=== PATIENT | male | born 1945 | race Caucasian/White ===

== ENCOUNTER → 2016-12-31 | Day surgery (SDC) | payer OTHER, MEDICARE ==
[~2016-12-31] MED LIST: ACETAMINOPHEN 500 MG TAB PO PRN; BUPIVACAINE 0.5% 30 ML SDV ONE; DEXAMETHASONE 4 MG/ML VIAL ONE; ENALAPRILAT DIHYDRATE 1.25 MG/ML VIAL IVP PRN; HYDROCODONE/APAP 5/325 TAB PO PRN; LABETALOL HCL 50 MG/10 ML SYR IVP PRN; LIDOCAINE 2% 5 ML SDV ONE; LR 1,000 ML IV ONE; LR 500 ML IV PRN; MEPERIDINE 25 MG/ML SYR IVP PRN; MIDAZOLAM 2 MG/2 ML VIAL IVP ONE; NALOXONE HCL 0.4 MG/ML INJ IVP PRN; ONDANSETRON 4 MG/2 ML VIAL IVP PRN; ONDANSETRON 4 MG/2 ML VIAL ONE; PROMETHAZINE HCL 25 MG/ML INJ IVP PRN; PROPOFOL 200 MG/20 ML VIAL ONE; PROPOFOL/EMULSION 500 MG/50 ML BOTTLE IV ONE; REMIFENTANIL HCL 1 MG VIAL ONE; ROCURONIUM 50 MG/5 ML VIAL ONE; SUGAMMADEX SODIUM 200 MG/2 ML VIAL IVP ONE; THROMBIN (BOVINE) 5,000 UNIT VIAL TP ONE; VASOPRESSIN 20 UNIT/ML VIAL ONE; ceFAZolin 2 GM in D5W 100 ML IV ONE; ceFAZolin 2 GM/DEXTROSE 100 ML IV ONE; fentaNYL 100 MCG/2 ML INJ IVP PRN; fentaNYL 100 MCG/2 ML INJ ONE; levOFLOXACIN 500 MG/DEXTROSE 100 ML IV ONE
--- NOTE | 2016-12-31 08:04 | PDHPUP ---
History & Physical Update H&P update statement: This history and physical update is based on an assessment of the patient which was completed after admission or registration (within 24 hours), but prior to the surgery/procedure. H&P update: H&P reviewed & patient examined, no change in patient's condition since H&P completed
[2016-12-31 11:26] VITALS: PULSE 92
--- NOTE | 2016-12-31 11:47 | PDANEPAE ---
ANE Past Medical History - Cardiovascular History Hx Hypertension: Yes Hx Arrhythmias: No Hx Chest Pain: No Hx Coronary Artery / Peripheral Vascular Disease: Yes Hx CHF / Valvular Disease: No Hx Palpitations: No Cardiovascular History Comment: coronary stents after [place] ~2000 - Pulmonary History Hx COPD: No Hx Asthma/Reactive Airway Disease: No Hx Recent Upper Respiratory Infection: No Hx Oxygen in Use at Home: No Hx Sleep Apnea: Yes Sleep Apnea Screening Result - Last Documented: Negative Pulmonary History Comment: quit smoking 1999. RUL chest mass noted on chest CT. productive cough. - Neurologic History Hx Cerebrovascular Accident: No Hx Seizures: No Hx Dementia: No - Endocrine History Hx Diabetes: No - Renal History Hx Renal Disorders: Yes Renal History Comment: ileal conduit - Liver History Hx Hepatic Disorders: No - Neurological & Psychiatric Hx Hx Neurological and Psychiatric Disorders: No - Cancer History Hx Cancer: Yes Cancer History Comment: L kidney, prostate,bladder, non-small cell lung CA - Congenital Disorder History Hx Congenital Disorders: No - GI History Hx Gastrointestinal Disorders: No Gastrointestinal History Comment: occ GERD - Other Health History Other Health History: Hx of gout. full dentures. "sinuses drain". - Chronic Pain History Chronic Pain: No - Surgical History Prior Surgeries: radical cystectomy w/ileal conduit 05-26-16. L nephrectomy. prostatectomy 1999. AAA repair 1999 ANE Review of Systems Review of Systems: - Exercise capacity Exercise capacity: >=4 METS METS (RN): 4 METS ANE Patient History - Allergies Allergies/Adverse Reactions: Penicillins Allergy (Verified 12/30/16 16:32) Rash succinylcholine Allergy (Verified 12/30/16 16:33) Other-Enter Comments - Home Medications Home Medications: Allopurinol 12/30/16 [Last Taken Unknown] Amlodipine Besylate 12/30/16 [Last Taken Unknown] Aspirin EC 81 mg (*) 12/30/16 [Last Taken Unknown] Atorvastatin Calcium 12/30/16 [Last Taken Unknown] Losartan Potassium 12/30/16 [Last Taken Unknown] - NPO status NPO Since - Liquids (Date): 12/31/16 NPO Since - Liquids (Time): 09:30 NPO Since - Solids (Date): 12/30/16 NPO Since - Solids (Time): 20:30 - Smoking Hx Smoking Status: Former smoker ANE Labs/Vital Signs - Vital Signs Blood Pressure: 138/89 Heart Rate: 92 Respiratory Rate: 18 O2 Sat (%): 100 Height: 187.96 cm Weight: 98.883 kg ANE Physical Exam - Airway Neck exam: FROM Mallampati Score: Class 2 () Mouth exam: dentures - Pulmonary Pulmonary: no respiratory distress, no rales or rhonchi, clear to auscultation - Cardiovascular Cardiovascular: regular rate and rhythym, no murmur, rub, or gallop - ASA Status ASA Status: III ANE Anesthesia Plan Anesthesia Plan: general endotracheal anesthesia (TIVA)
--- NOTE | 2016-12-31 14:20 | POSTOPPROG ---
Post Op Note Date of Operation: 12/31/16 Surgeon: Rafael Jackson Tobacco Primer Machine Operator: Katelynn Anesthesiologist: Traci Rodriguez Anesthesia: GET(General Endotracheal) Pre-op Diagnosis: Lung cancer Post-op Diagnosis: Same Indication: Mass identified on CT scan Procedure: Mediastinoscopy with paratracheal lymph node biopsy Findings: Paratracheal lymph node Inf/Abcess present in the surg proc area at time of surgery?: No Depth: Deep Incisional (Fascial) EBL: Minimal Complications: None Specimen(s): Right parasternal lymph node biopsies for frozen and permanent
[2016-12-31 14:37] VITALS: TEMP 97.5
--- NOTE | 2016-12-31 14:39 | POSTANESTH ---
Post Anesthetic Evaluation Cardiovascular Status: Normal, Stable, Similar to Pre-Op Cond Respiratory Status: Normal, Stable, Similar to Pre-op Cond. Level of Consciousness/Mental Status: Can Participate in Eval, Mildly Sleepy, Arousable Pain Control: Adequate, Prn Tx Ordered Nausea/Vomiting Control: Adequate, Prn Tx Ordered Complications Possibly Related to Anesthesia: None Noted
[2016-12-31 15:29] VITALS: O2SAT 94
[2016-12-31 15:37] VITALS: BP 132/70; RESP 16
--- NOTE | 2017-01-01 20:24 | GOP ---
[f rep st] OPERATIVE REPORT DATE OF OPERATION: 12/31/2016 SURGEON: Rafael Jackson MD SENIOR WAREHOUSE CLERK: Traci Rodriguez PA-C ANESTHESIOLOGIST: Dr. Pace. PREOPERATIVE DIAGNOSIS: Right lung cancer. POSTOPERATIVE DIAGNOSIS: Right lung cancer, with mediastinal metastases. PROCEDURE PERFORMED: Mediastinoscopy and biopsy. FINDINGS: Patient was found to have a hard, relatively fixed peritracheal node near the bifurcation, which appeared to be consistent with metastatic lung cancer on frozen section. ESTIMATED BLOOD LOSS: Less than 5 cc. DESCRIPTION OF PROCEDURE: The patient was taken to the operating room where he received satisfactory general endotracheal anesthesia by Dr. Pace. He was placed in supine position, prepped and draped in usual sterile fashion. Neck was extended. Incision was made in the low neck, dissection carried down through the platysma. The strap muscles were in the midline. The thyroid was dissect ed free and retracted upward. Pretracheal space was entered and dissection extended down along the t rachea, down into the mediastinum, all the way down to the hunter and pulmonary artery. On the left side of the mediastinum, no lymph nodes could be identified for biopsy. However, a hard node was see n in the right peritracheal area just above the bifurcation of the bronchi. This was carefully tease d out and dissected free, and multiple biopsies were taken of the mass. It appeared to be possibly f ixed to the pulmonary artery and no attempt was made to completely remove the lymph node. Multiple b iopsies were done. Hemostasis was assured. Some topical thrombin was placed in the surgical site, a nd the mediastinoscope was removed. The strap muscles approximated with 3-0 Vicryl, and the platysma was closed with a running 3-0 Vicryl suture. Wounds were infiltrated with 0.5% Marcaine. Skin was closed with 4-0 Monocryl subcuticular stitch. He tolerated the procedure well, was taken to the [facility] very room in good condition. COMPLICATIONS: There were no complications. FINDINGS: Frozen section was returned as consistent with metastatic lung cancer. /[id number]/MODL
== END | disposition home or self-care (01) ==
LOC: UNDOADMOB 10:39 → FSGY 10:39 → F3E 10:39 → EDSTATUS 12:30 → UNDODISOB 16:12
PROVIDERS: ATTEND Surgery
PROC: 07B70ZX Excision of Thorax Lymphatic, Open Approach, Diagnostic (ICD-10-PCS; principal; 2016-12-31 12:30)
DX: C78.1 Secondary malignant neoplasm of mediastinum (principal); C34.11 Malignant neoplasm of upper lobe, right bronchus or lung; Z87.891 Personal history of nicotine dependence
CPT/HCPCS: J1100; J1956; J2250; J2405; J2704; J3010

== ENCOUNTER → 2017-01-12 | Outpatient (CLI) | payer OTHER, MEDICARE | LOC: BHFA 11:00 | PROVIDERS: ATTEND Internal Medicine Cardiovascular Disease | DX: C34.90 Malignant neoplasm of unspecified part of unspecified bronchus or lung (principal) ==

== ENCOUNTER 2017-01-22 07:38 | Day surgery (SDC) | payer OTHER, MEDICARE ==
--- NOTE | 2017-01-22 07:08 | PDHPUP ---
History & Physical Update H&P update statement: This history and physical update is based on an assessment of the patient which was completed after admission or registration (within 24 hours), but prior to the surgery/procedure. reviewed 01/22/2017
[2017-01-22] MEDS ORDERED: CLINDAMYCIN 900 MG/DEXTROSE 50 ML IV ONE (08:13)
[2017-01-22 08:36] VITALS: PULSE 59
[2017-01-22] MEDS ORDERED: BUPIVACAINE 0.5% 30 ML SDV ONE (09:06)
[2017-01-22] MEDS ORDERED: SODIUM BICARBONATE 10 MEQ/10 ML SYR IVP ONE (09:09)
[2017-01-22] MEDS ORDERED: LR 1,000 ML IV ONE (09:12)
--- NOTE | 2017-01-22 10:45 | PDANEPAE ---
ANE Past Medical History - Cardiovascular History Hx Hypertension: Yes Hx Arrhythmias: No Hx Chest Pain: No Hx Coronary Artery / Peripheral Vascular Disease: Yes Hx CHF / Valvular Disease: No Hx Palpitations: No Cardiovascular History Comment: coronary stents after [place] ~2000 - Pulmonary History Hx COPD: No Hx Asthma/Reactive Airway Disease: No Hx Recent Upper Respiratory Infection: No Hx Oxygen in Use at Home: No Hx Sleep Apnea: No Sleep Apnea Screening Result - Last Documented: Positive Pulmonary History Comment: quit smoking 1999. RUL chest mass noted on chest CT. productive cough. - Neurologic History Hx Cerebrovascular Accident: No Hx Seizures: No Hx Dementia: No - Endocrine History Hx Diabetes: No - Renal History Hx Renal Disorders: Yes Renal History Comment: ileal conduit urostomy, right kidney only - Liver History Hx Hepatic Disorders: No - Neurological & Psychiatric Hx Hx Neurological and Psychiatric Disorders: No - Cancer History Hx Cancer: Yes Cancer History Comment: L kidney, prostate,bladder, non-small cell lung CA. colon ca - Congenital Disorder History Hx Congenital Disorders: No - GI History Hx Gastrointestinal Disorders: Yes Gastrointestinal History Comment: colon ca - Other Health History Other Health History: Hx of gout. full dentures. "sinuses drain". - Chronic Pain History Chronic Pain: No - Surgical History Prior Surgeries: radical cystectomy w/ileal conduit 05-26-16. L nephrectomy. prostatectomy 1999. AAA repair 1999 ANE Review of Systems Review of Systems: ANE Patient History - Allergies Allergies/Adverse Reactions: Penicillins Allergy (Verified 12/30/16 16:32) Rash succinylcholine Allergy (Verified 12/30/16 16:33) Other-Enter Comments - Home Medications Home Medications: Allopurinol 12/30/16 [Last Taken 01/22/17] Amlodipine Besylate 12/30/16 [Last Taken 01/22/17] Aspirin EC 81 mg (*) 12/30/16 [Last Taken 01/21/17] Atorvastatin Calcium 12/30/16 [Last Taken 01/22/17] Losartan Potassium 12/30/16 [Last Taken 01/22/17] - NPO status NPO Since - Liquids (Date): 01/22/17 NPO Since - Liquids (Time): 06:00 NPO Since - Solids (Date): 01/21/17 NPO Since - Solids (Time): 19:00 - Smoking Hx Smoking Status: Former smoker - Family Anes Hx Family Hx Anesthesia Complications: none ANE Labs/Vital Signs - Vital Signs Blood Pressure: 130/74 Heart Rate: 59 Respiratory Rate: 14 O2 Sat (%): 97 Height: 187.96 cm Weight: 98.883 kg ANE Physical Exam - Airway Neck exam: FROM Mallampati Score: Class 3 Mouth exam: normal dental/mouth exam - Pulmonary Pulmonary: no respiratory distress - Cardiovascular Cardiovascular: regular rate and rhythym - ASA Status ASA Status: III ANE Anesthesia Plan Total IV Anesthesia: Yes
[2017-01-22] MEDS ORDERED: fentaNYL 100 MCG/2 ML INJ ONE (10:48)
[2017-01-22] MEDS ORDERED: MIDAZOLAM 2 MG/2 ML VIAL ONE (10:48)
[2017-01-22] MEDS: BACITRACIN ZINC 14.2 GM OINTTUBE TP ONE ×2 (10:48→11:56)
[2017-01-22] MEDS ORDERED: PROPOFOL/EMULSION 500 MG/50 ML BOTTLE IV ONE (10:48)
[2017-01-22] MEDS: LIDOCAINE 1% 300 MG/30 ML SDV ONE ×2 (10:50→11:56)
[2017-01-22] MEDS ORDERED: LIDOCAINE 2% 100 MG/5 ML SYR ONE (10:54)
[2017-01-22] MEDS ORDERED: NALOXONE HCL 0.4 MG/ML INJ IVP PRN (11:55)
[2017-01-22] MEDS ORDERED: ONDANSETRON 4 MG/2 ML VIAL IVP PRN (11:55)
[2017-01-22] MEDS ORDERED: ALBUTEROL 3 ML DEYVIAL IH PRN (11:55)
[2017-01-22] MEDS ORDERED: ACETAMINOPHEN 500 MG TAB PO PRN (11:55)
[2017-01-22] MEDS ORDERED: fentaNYL 100 MCG/2 ML INJ IVP PRN (11:55)
--- NOTE | 2017-01-22 11:55 | POSTANESTH ---
Post Anesthetic Evaluation Cardiovascular Status: Similar to Pre-Op Cond Respiratory Status: Similar to Pre-op Cond. Level of Consciousness/Mental Status: Alert and Oriented Pain Control: Adequate, Prn Tx Ordered Nausea/Vomiting Control: Adequate, Prn Tx Ordered Complications Possibly Related to Anesthesia: None Noted
--- NOTE | 2017-01-22 12:18 | POSTOPPROG ---
Post Op Note Date of Operation: 01/22/17 Surgeon: Rafael Jackson Anesthesiologist: Dr Mcmahon Anesthesia: GET(General Endotracheal) Pre-op Diagnosis: need for IV access/chemo Post-op Diagnosis: same Indication: same Procedure: chest port placement with fluoro Inf/Abcess present in the surg proc area at time of surgery?: No EBL: 50-100
[2017-01-22 12:25] VITALS: TEMP 96.8
[2017-01-22 12:32] VITALS: RESP 10; O2SAT 92
[2017-01-22 12:51] VITALS: BP 109/71
== END 2017-01-22 13:00 | disposition home or self-care (01) ==
LOC: FSGY 07:38
PROVIDERS: ATTEND Surgery
PROC: 02HV33Z Insertion of Infusion Device into Superior Vena Cava, Percutaneous Approach (ICD-10-PCS; principal; 2017-01-22 09:30)
PROC: BB12ZZZ Fluoroscopy of Right Lung (ICD-10-PCS; principal; 2017-01-22 09:30)
PROC: 0JH60XZ Insertion of Tunneled Vascular Access Device into Chest Subcutaneous Tissue and Fascia, Open Approach (ICD-10-PCS; principal; 2017-01-22 09:30)
DX: C34.11 Malignant neoplasm of upper lobe, right bronchus or lung (principal); C77.1 Secondary and unspecified malignant neoplasm of intrathoracic lymph nodes; Z85.528 Personal history of other malignant neoplasm of kidney; Z87.891 Personal history of nicotine dependence; Z85.46 Personal history of malignant neoplasm of prostate; Z85.038 Personal history of other malignant neoplasm of large intestine; Z95.5 Presence of coronary angioplasty implant and graft
CPT/HCPCS: C1788; J1642; J2001; J2250; J2704; J3010

== ENCOUNTER 2017-06-01 06:15 | Inpatient (IN) | payer OTHER, MEDICARE ==
--- NOTE | 2017-05-31 14:47 | GHP ---
[f rep st] PREOP HISTORY AND PHYSICAL DATE OF ADMISSION: 06/01/2017 SOURCE: Taken from both patient and chart review. HISTORY OF PRESENT ILLNESS: The patient is a 71-year-old male with a history of a recurrent superfic ial urothelial carcinoma, ultimately treated with radical cystectomy and ileal conduit, as well as me tastatic lung cancer, status post mediastinoscopy with lymph node biopsy with Dr. Jackson, now treated with chemotherapy, who was also found to have 2 FDG-avid masses of his colon upon workup of his lung cancer. Ultimately, a colonoscopy confirmed an intramucosal adenocarcinoma at 20 cm, and an invasive moderately-differentiated adenocarcinoma at 10 cm. Of note, he also had a rectal polyp biopsy that showed 2 hyperplastic polyps. At this time, his chemotherapy is on hold and he is ready to proceed w ith low anterior colon resection. Risks and options have been fully discussed including but not limi natalie to bleeding, infection, injury to a nerve, ureteral injury, damage surrounding structures, anasto motic leak, anastomotic stricture, failure to find mass, need for further surgery, open surgery, and other problems, and he requests to proceed. PAST MEDICAL HISTORY: Includes urothelial carcinoma as described above. Also, metastatic lung cance r as described above. Also, abdominal aortic aneurysm repair, cystectomy with ileal conduit as descr ibed above, nephrectomy, prostatectomy, pain stimulator implant. MEDICATIONS: Include allopurinol, amlodipine, aspirin, atorvastatin, dexamethasone, lidocaine, prilo venecia topical, losartan, Zofran, prochlorperazine. ALLERGIES: Penicillin and succinylcholine. FAMILY HISTORY: Noncontributory. REVIEW OF SYSTEMS: 10-point review of systems negative, aside from that noted in the HPI. PHYSICAL EXAMINATION: GENERAL: Reveals a 71-year-old male, alert and oriented x3 and in no acute di stress. HEENT: Normocephalic, atraumatic. Well healing neck scar. CHEST: Clear to auscultation b ilaterally cardiac regular rate and rhythm. ABDOMEN: Soft, nontender. GENITAL: Deferred. EXTREMI TIES: Warm and dry. IMPRESSION: This is a 71-year-old male with a history of bladder cancer, currently being treated for metastatic lung cancer, now found to have 2 primary adjacent colon cancers. PLAN: Proceed with a laparoscopic, possibly open, low anterior resection. Again, risks and options have been fully discussed and he requests to proceed. /[id number]/MODL
[2017-06-01] MEDS ORDERED: LIDOCAINE 1% 2 ML INJ ID PRN (06:33)
[2017-06-01] MEDS ORDERED: LR 1,000 ML IV ONE (06:33)
[2017-06-01] MEDS ORDERED: BUPIVACAINE 0.5% 30 ML SDV ONE ×2 (07:18→10:59)
[2017-06-01] MEDS ORDERED: CEFAZOLIN 1 GM/DEXTROSE/50 ML BAG IV ONE (07:19)
[2017-06-01] MEDS ORDERED: HEPARIN 1000 UNIT/1 ML MDV ONE ×2 (07:20→09:36)
[2017-06-01] MEDS ORDERED: fentaNYL 100 MCG/2 ML INJ ONE (07:52)
[2017-06-01] MEDS ORDERED: HYDROmorphONE/DILAUDID 2 MG/ML INJ ONE (07:52)
[2017-06-01] MEDS ORDERED: PROPOFOL 200 MG/20 ML VIAL ONE (07:53)
[2017-06-01] MEDS ORDERED: PROPOFOL/EMULSION 500 MG/50 ML BOTTLE IV ONE ×3 (07:53→10:34)
[2017-06-01] MEDS ORDERED: LIDOCAINE 2% 5 ML SDV ONE (07:57)
[2017-06-01] MEDS ORDERED: ROCURONIUM 50 MG/5 ML VIAL ONE ×2 (07:57→09:25)
--- NOTE | 2017-06-01 08:06 | PDANEPAE ---
ANE Past Medical History - Cardiovascular History Hx Hypertension: Yes Hx Arrhythmias: No Hx Chest Pain: No Hx Coronary Artery / Peripheral Vascular Disease: Yes Hx CHF / Valvular Disease: No Hx Palpitations: No Cardiovascular History Comment: coronary stents after [place] ~2000 - Pulmonary History Hx COPD: No Hx Asthma/Reactive Airway Disease: No Hx Recent Upper Respiratory Infection: No Hx Oxygen in Use at Home: No Hx Sleep Apnea: No Sleep Apnea Screening Result - Last Documented: Positive Pulmonary History Comment: quit smoking 1999. RUL chest mass noted on chest CT. productive cough. - Neurologic History Hx Cerebrovascular Accident: No Hx Seizures: No Hx Dementia: No - Endocrine History Hx Diabetes: No - Renal History Hx Renal Disorders: Yes Renal History Comment: ileal conduit,. 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 L nephrectomy. prostatectomy 1999. AAA repair 1999 ANE Review of Systems Review of Systems: - Exercise capacity METS (RN): 3 METS ANE Patient History - Allergies Allergies/Adverse Reactions: Penicillins Allergy (Verified 05/28/17 11:12) Rash succinylcholine Allergy (Verified 05/28/17 11:12) Other-Enter Comments - Home Medications Home Medications: Allopurinol [Allopurinol 300 MG (RX)] 300 mg PO DAILY #0 12/30/16 [Last Taken 05:10] Aspirin [Aspirin 81mg (*)] 81 mg PO DAILY #0 12/30/16 [Last Taken 05/30/17] Atorvastatin Calcium [Lipitor 40 mg (*)] 40 mg PO DAILY #0 12/30/16 [Last Taken 06/01/17 05:10] Losartan Potassium [Cozaar 50 mg (*)] 100 mg PO HS #0 12/30/16 [Last Taken 06/01 05:10] amLODIPine BESYLATE [Norvasc 5 mg (*)] 5 mg PO DAILY #0 12/30/16 [Last Taken 05:10] Ascorbic Acid [Vitamin C 500 mg (*)] 500 mg PO DAILY 05/28/17 [Last Taken ] Metoprolol Succinate Xr [Toprol Xl 100 mg (*)] 100 mg PO DAILY 05/28/17 [Last Taken 06/01/17 05:10] - NPO status NPO Since - Liquids (Date): 05/31/17 NPO Since - Liquids (Time): 21:00 NPO Since - Solids (Date): 05/31/17 NPO Since - Solids (Time): 08:00 - Smoking Hx Smoking Status: Former smoker - Family Anes Hx Family Hx Anesthesia Complications: none ANE Labs/Vital Signs - Vital Signs Blood Pressure: 110/79 Heart Rate: 98 Respiratory Rate: 16 O2 Sat (%): 91 Height: 187.96 cm Weight: 98.883 kg ANE Physical Exam - Airway Neck exam: FROM Mallampati Score: Class 2 Mouth exam: dentures - Pulmonary Pulmonary: no respiratory distress, no rales or rhonchi, clear to auscultation - Cardiovascular Cardiovascular: regular rate and rhythym, no murmur, rub, or gallop - ASA Status ASA Status: III ANE Anesthesia Plan Anesthesia Plan: general endotracheal anesthesia Total IV Anesthesia: Yes
[2017-06-01] MEDS ORDERED: PHENYLEPHRINE HCL 100 MCG/ML SYR ONE (08:40)
[2017-06-01] MEDS ORDERED: LR 500 ML IV PRN (10:52)
[2017-06-01] MEDS ORDERED: HYDROmorphONE/DILAUDID 1 MG/ML INJ IVP PRN (10:52)
[2017-06-01] MEDS ORDERED: LABETALOL HCL 5 MG/ML 20 ML MDV IVP PRN (10:52)
[2017-06-01] MEDS ORDERED: MEPERIDINE 25 MG/ML SYR IVP PRN (10:52)
[2017-06-01] MEDS ORDERED: PROMETHAZINE HCL 25 MG/ML INJ IVP PRN (10:52)
[2017-06-01] MEDS ORDERED: ONDANSETRON 4 MG/2 ML VIAL IVP PRN ×2 (10:52→11:30)
[2017-06-01] MEDS ORDERED: fentaNYL 100 MCG/2 ML INJ IVP PRN (10:52)
[2017-06-01] MEDS ORDERED: NALOXONE HCL 0.4 MG/ML INJ IVP PRN ×2 (10:52→11:31)
[2017-06-01] MEDS ORDERED: PHENYLEPHRINE HCL 100 MCG/ML SYR IVP PRN (10:52)
[2017-06-01] MEDS ORDERED: DEXAMETHASONE 4 MG/ML VIAL ONE ×2 (10:53)
[2017-06-01] MEDS ORDERED: ONDANSETRON 4 MG/2 ML VIAL ONE (10:53)
[2017-06-01] MEDS ORDERED: SUGAMMADEX SODIUM 200 MG/2 ML VIAL IVP ONE (10:55)
--- NOTE | 2017-06-01 11:27 | POSTOPPROG ---
Post Op Note Date of Operation: 06/01/17 Surgeon: Rafael Jackson Synoptic Meteorologist: Shahla Moulton Anesthesiologist: Aguilar Pace Anesthesia: GET(General Endotracheal) Pre-op Diagnosis: colon cancer x 2, also, hx lung and bladder CA Post-op Diagnosis: same Procedure: ex-laparoscopy, paramedian lap c rectosigmoidectomy, omental patch Findings: see below Inf/Abcess present in the surg proc area at time of surgery?: No EBL: Minimal Complications: none Specimen(s): rectosigmoid colon and anastomotic donuts to pathology Findings: ileal conduit vs small bowel adhered to midline scar. Many adhesions. Two tumors in specimen. Both malignant, measuring 2.2 and 2.4 cm. Distal margin 1.5 cm. Liver free from any obvious tumors. no sign of distal mets although some local adenopathy
[2017-06-01] MEDS ORDERED: OXYCODONE/APAP 5/325 TAB PO PRN (11:30)
[2017-06-01] MEDS ORDERED: ACETAMINOPHEN 325 MG TAB PO PRN (11:30)
[2017-06-01] MEDS ORDERED: D5W 1/2 NS W/ 20 KCl/L 1,000 ML IV SCH (11:30)
[2017-06-01] MEDS ORDERED: HYDROmorphONE/DILAUDID 6 MG/30 ML PCA IV PRN (11:31)
--- NOTE | 2017-06-01 11:53 | POSTANESTH ---
Post Anesthetic Evaluation Cardiovascular Status: Normal, Stable, Similar to Pre-Op Cond Respiratory Status: Normal, Stable, Similar to Pre-op Cond. Level of Consciousness/Mental Status: Can Participate in Eval, Moderately Sleepy Pain Control: Adequate, Prn Tx Ordered Nausea/Vomiting Control: Adequate, Prn Tx Ordered Complications Possibly Related to Anesthesia: None Noted
--- NOTE | 2017-06-01 14:42 | PDMN ---
Medical Necessity Medical necessity: [id number] surgery colectomy partial with or without ostomy by Lap 3 days : ex Lap, paramedian lap c rectosigmoidectomy, omental patch
[2017-06-01] MEDS: DOCUSATE SODIUM 100 MG CAP PO SCH (19:47)
[2017-06-01] MEDS: LOSARTAN POTASSIUM 50 MG TAB PO SCH (19:47)
[2017-06-02] MEDS: amLODIPine BESYLATE 5 MG TAB PO SCH (08:54)
[2017-06-02] MEDS: ALLOPURINOL 300 MG TAB PO SCH (08:55)
[2017-06-02] MEDS: ASCORBIC ACID 500 MG TAB PO SCH (08:55)
[2017-06-02] MEDS: ATORVASTATIN CALCIUM 40 MG TAB PO SCH (08:55)
[2017-06-02] MEDS: ASPIRIN 81 MG CHEWABLE TAB PO SCH (08:56)
[2017-06-02] MEDS: DOCUSATE SODIUM 100 MG CAP PO SCH ×2 (08:56→19:44)
[2017-06-02] MEDS: METOPROLOL SUCCINATE XR 100 MG TAB PO SCH (10:45)
--- NOTE | 2017-06-02 11:05 | SOAPPROG ---
SOAP Progress Note Assessment/Plan: Assessment: 71 y/o male s/p low anterior resection 06/01 S: Doing well today, up in chair during visit. Passing flatus, but no BM yet. Pain well controlled. Only used [employer] once last night. Denies nausea. Eager to start eating. O: Alert Afebrile, VSS Cardiac: RRR Lungs: CTA bilaterally Abdomen: soft, mildly tender Plan: Switch to clear liquids, apple sauce and crackers. Switch to oral and IV push pain meds. 06/02/17 11:01 Objective: Vital Signs Temp Pulse Resp BP Pulse Ox 36.5 C 82 16 108/65 95 06/02/17 10:46 06/02/17 10:46 06/02/17 10:46 06/02/17 10:46 06/02/17 10:46 Laboratory Results 06/02/17 05:13 06/02/17 05:13 06/01/17 06/02/17 06/03/17 05:59 05:59 05:59 Intake Total 1400 Output Total 1225 Balance 175 ICD10 Worksheet Patient Problems: Problems Problem Status Onset Colon cancer Acute - ICD10 Problem Qualifiers (1) Colon cancer Qualifiers: Colon location: sigmoid Qualified Code(s): C18.7 - Malignant neoplasm of sigmoid colon
--- NOTE | 2017-06-02 17:57 | ASMTCMCOM ---
CM Note CM Note Notes: Pt in for scheduled surgery, hx of lung ca. Lives with , no needs identified, anticipate will dc home w/support of when medically stable. CM available for any changes. DC Plan: Indepedent Date Signed: 06/02/2017 05:57 PM Electronically Signed By:Gilam Goodman RN
[2017-06-02] MEDS: LOSARTAN POTASSIUM 50 MG TAB PO SCH (19:43)
[2017-06-03] MEDS: HEPARIN 5,000 UNIT/0.5 ML SYR SC SCH ×2 (05:07→14:12)
[2017-06-03] MEDS: amLODIPine BESYLATE 5 MG TAB PO SCH (07:41)
[2017-06-03] MEDS: METOPROLOL SUCCINATE XR 100 MG TAB PO SCH (07:42)
[2017-06-03] MEDS: ALLOPURINOL 300 MG TAB PO SCH (07:42)
[2017-06-03] MEDS: ASCORBIC ACID 500 MG TAB PO SCH (07:43)
[2017-06-03] MEDS: ATORVASTATIN CALCIUM 40 MG TAB PO SCH (07:43)
[2017-06-03] MEDS: ASPIRIN 81 MG CHEWABLE TAB PO SCH (07:44)
[2017-06-03] MEDS: DOCUSATE SODIUM 100 MG CAP PO SCH (07:44)
--- NOTE | 2017-06-03 14:38 | SOAPPROG ---
SOAP Progress Note Assessment/Plan: Assessment: 71 y/o male s/p low anterior resection 06/01 S: Doing well today, up in chair during visit. Passing flatus and BMs. Pain . Denies pain and nausea. Would like to start eating a regular diet. O: Alert Afebrile, VSS Cardiac: RRR Lungs: CTA bilaterally Abdomen: soft, mildly tender. Incision cdi. +BS Plan: Advance diet to regular. Probably discharge later today or tomorrow. 06/03/17 14:36 Objective: Vital Signs Temp Pulse Resp BP Pulse Ox 36.8 C 81 16 98/58 L 91 L 06/03/17 11:42 06/03/17 11:42 06/03/17 11:42 06/03/17 11:42 06/03/17 11:42 Laboratory Results 06/02/17 05:13 06/02/17 05:13 06/02/17 06/03/17 06/04/17 05:59 05:59 05:59 Intake Total 1400 1060 Output Total 1225 500 Balance 175 560 ICD10 Worksheet Patient Problems: Problems Problem Status Onset Colon cancer Acute - ICD10 Problem Qualifiers (1) Colon cancer Qualifiers: Colon location: sigmoid Qualified Code(s): C18.7 - Malignant neoplasm of sigmoid colon
[2017-06-03 15:31] VITALS: BP 116/63; PULSE 79; RESP 18; TEMP 97.7; O2SAT 93
--- NOTE | 2017-06-06 06:21 | GOP ---
[f rep st] OPERATIVE REPORT DATE OF OPERATION: 06/01/2017 SURGEON: Rafael Jackson MD MACHINING ASSOCIATE: MALLORY Pimentel ANESTHESIOLOGIST: Aguilar Pace MD PREOPERATIVE DIAGNOSIS: Colon cancer x2. POSTOPERATIVE DIAGNOSIS: Colon cancer x2. PROCEDURE PERFORMED: Laparoscopy and laparotomy with adhesiolysis and low anterior colon resection a nd omental pedicle flap. FINDINGS: ESTIMATED BLOOD LOSS: Blood loss for the procedure was less than 50 cc. DESCRIPTION OF PROCEDURE: Patient was taken to the operating room where he received satisfactory gen eral endotracheal anesthesia by Dr. Pace. He was placed in a supine position in [facility] ed and draped in the usual sterile fashion. A short incision was made in the right upper quadrant. A Veress needle inserted. Pneumoperitoneum was established. A trocar was carefully introduced. Vis ualization was good, but there were extensive adhesions throughout the abdomen. A second trocar was placed but no real headway could be made through all the adhesions. As the patient had his right low er quadrant urinary stoma and a marked amount of small bowel adherent to his previous midline incisio n, it was elected to convert to an open procedure. A left lower quadrant/lower abdominal paramedian incision was made and carried down through the musculature. The abdomen was carefully entered with c are to avoid any of the adherent small bowel, which was carefully dissected off the abdominal wall an d reduced. The small bowel was freed up out of the pelvis and reduced, exposing the colon. The sigm oid colon was freed up from the lateral peritoneal reflection, and dissection extended up to the sple jose juan flexure. Peritoneum on either side of the sigmoid colon was divided. Presacral space was entere d and then dissection extended down past the proximal colon cancer spot, which was marked with ink. Dissection extended on down underneath the peritoneum until the 2nd lesion could be identified. The mesocolon was divided and the lateral stalks were divided until we could get well below the lower col on tumor, which was quite palpable but did not appear to be penetrating the wall. There was no obvio us metastatic disease in the abdomen. The rectum was divided below this tumor with the contour stapl er. Mesentery was divided with the Harmonic Scalpel and/or 2-0 silk ties. The descending colon was divided with a LAILA stapler, and the specimen was removed. The descending colon was mobilized adequat danitza to come down into the pelvis. A pursestring suture was placed in the proximal colon, and a 29 EE A was selected. EEA was then introduced up through the anus, and the spike was brought out through t he rectal stump and the 2 pieces were connected and closed and then fired anastomotic ring s were present. The anastomosis was tested under water and appeared to be airtight. Hemostasis was assured. The wound was irrigated. Some omental tissue was mobilized down and sutured over the anast omosis and an omental pedicle flap. Abdomen was then closed in layers using a running #1 PDS suture for the muscle layers. Wounds were infiltrated with 0.5% Marcaine. Subcu was closed with a running 2-0 Vicryl and the skin with skin peng. The previous trocar sites were closed with 4-0 Monocryl s ubcuticular sutures. All wounds were infiltrated with 0.5% Marcaine. COMPLICATIONS: There were no complications. /[id number]/MODL
== END 2017-06-03 18:25 | disposition home or self-care (01) | DRG 330 ==
LOC: F3N 06:15 → F3E 13:34
PROVIDERS: ADMIT Surgery; ATTEND Surgery
PROC: 0DTN0ZZ Resection of Sigmoid Colon, Open Approach (ICD-10-PCS; principal; 2017-06-01 08:00)
PROC: 0DBP0ZZ Excision of Rectum, Open Approach (ICD-10-PCS; principal; 2017-06-01 08:00)
DX: C18.7 Malignant neoplasm of sigmoid colon (principal); C78.00 Secondary malignant neoplasm of unspecified lung; Z85.51 Personal history of malignant neoplasm of bladder; Z85.038 Personal history of other malignant neoplasm of large intestine; Z53.31 Laparoscopic surgical procedure converted to open procedure
CPT/HCPCS: J0690; J1100; J1170; J1644; J1956; J2370; J2405; J2704; J3010

== ENCOUNTER → 2017-07-21 | Outpatient (CLI) | payer OTHER | LOC: FIMAGING 09:35 | PROVIDERS: ATTEND Internal Medicine Hematology & Oncology | DX: Z12.89 Encounter for screening for malignant neoplasm of other sites (principal); C18.8 Malignant neoplasm of overlapping sites of colon; R93.7 Abnormal findings on diagnostic imaging of other parts of musculoskeletal system | CPT/HCPCS: 78306; A9503 ==

== ENCOUNTER → 2017-07-23 | Outpatient (CLI) | payer OTHER, MEDICARE ==
[~2017-07-23] MED LIST changes: -ACETAMINOPHEN 500 MG TAB PO PRN; -BUPIVACAINE 0.5% 30 ML SDV ONE; -DEXAMETHASONE 4 MG/ML VIAL ONE; -ENALAPRILAT DIHYDRATE 1.25 MG/ML VIAL IVP PRN; -HYDROCODONE/APAP 5/325 TAB PO PRN; +IOPAMIDOL (ISOVUE 370) 100 ML BTL IV ONE; -LABETALOL HCL 50 MG/10 ML SYR IVP PRN; -LIDOCAINE 2% 5 ML SDV ONE; -LR 1,000 ML IV ONE; -LR 500 ML IV PRN; -MEPERIDINE 25 MG/ML SYR IVP PRN; -MIDAZOLAM 2 MG/2 ML VIAL IVP ONE; -NALOXONE HCL 0.4 MG/ML INJ IVP PRN; -ONDANSETRON 4 MG/2 ML VIAL IVP PRN; -ONDANSETRON 4 MG/2 ML VIAL ONE; -PROMETHAZINE HCL 25 MG/ML INJ IVP PRN; -PROPOFOL 200 MG/20 ML VIAL ONE; -PROPOFOL/EMULSION 500 MG/50 ML BOTTLE IV ONE; -REMIFENTANIL HCL 1 MG VIAL ONE; -ROCURONIUM 50 MG/5 ML VIAL ONE; -SUGAMMADEX SODIUM 200 MG/2 ML VIAL IVP ONE; -THROMBIN (BOVINE) 5,000 UNIT VIAL TP ONE; -VASOPRESSIN 20 UNIT/ML VIAL ONE; -ceFAZolin 2 GM in D5W 100 ML IV ONE; -ceFAZolin 2 GM/DEXTROSE 100 ML IV ONE; -fentaNYL 100 MCG/2 ML INJ IVP PRN; -fentaNYL 100 MCG/2 ML INJ ONE; -levOFLOXACIN 500 MG/DEXTROSE 100 ML IV ONE
== END ==
LOC: FIMAGING 12:32
PROVIDERS: ATTEND Internal Medicine Hematology & Oncology
DX: Z45.89 Encounter for adjustment and management of other implanted devices (principal); C18.8 Malignant neoplasm of overlapping sites of colon
CPT/HCPCS: 76000; J1642; Q9967

== ENCOUNTER → 2017-12-15 | Outpatient (CLI) | payer OTHER | LOC: FIMAGING 11:04 | PROVIDERS: ATTEND Nurse Practitioner | DX: M25.552 Pain in left hip (principal); C79.51 Secondary malignant neoplasm of bone; C34.90 Malignant neoplasm of unspecified part of unspecified bronchus or lung ==

== ENCOUNTER 2017-12-23 13:41 | Inpatient (IN) | payer OTHER ==
[2017-12-23] MEDS ORDERED: LIDOCAINE 2% JELLY 5 ML TUBE ONE (14:11)
--- NOTE | 2017-12-23 14:15 | EDPHY ---
H & P Stated Complaint: Weakness, dehydration, metastatic lung cancer Time Seen by Provider: 12/23/17 14:15 HPI/ROS: CHIEF COMPLAINT: Weakness HISTORY OF PRESENT ILLNESS: The patient presents to the ED with his with increasing weakness and dehydration. The patient has a history of metastatic lung cancer. The patient was recently diagnosed with a urinary tract infection. He initially was treated with Levaquin for several days and then switched to Bactrim. The patient has continued to have ongoing hematuria, poor appetite and now is having inability to ambulate secondary to weakness. The patient denies any acute headache. The patient was seen at [facility] yesterday and had laboratory testing which demonstrated evidence of an ongoing urinary tract infection and renal insufficiency. They present to the ED today secondary to his ongoing symptoms. The patient denies any fever, cough or congestion. He denies abdominal pain, vomiting or diarrhea. He denies headache or acute neurologic symptoms. REVIEW OF SYSTEMS: A comprehensive 10 point review of systems is otherwise negative aside from elements mentioned in the history of present illness. Source: Patient - Personal History Current Tetanus/Diphtheria Vaccine: Yes - Medical/Surgical History Hx Asthma: No Hx Chronic Respiratory Disease: No Hx Diabetes: No Hx Cardiac Disease: Yes Hx Renal Disease: Yes Hx Cirrhosis: No Hx Alcoholism: No Hx HIV/AIDS: No Hx Splenectomy or Spleen Trauma: No Other PMH: Cancer, AAA, cardiac stents x 4, prostectomy, L kidney removed, bladder removed, colon resect, neuro stim, - Social History Smoking Status: Former smoker - Physical Exam Exam: General Appearance: Alert, no distress Eyes: Pupils equal and round no pallor or injection ENT, Mouth: Dry mucous membranes Respiratory: There are no retractions, lungs are clear to auscultation, port to chest wall Cardiovascular: Regular rate and rhythm Gastrointestinal: Abdomen is soft and nontender, no masses, bowel sounds normal Neurological: A&O, normal motor function, normal sensory exam, normal cranial nerves Skin: Warm and dry, no rashes Musculoskeletal: Neck is supple nontender Extremities: symmetrical, full range of motion Psychiatric: Patient is oriented X 3, there is no agitation Constitutional: Initial Vital Signs Temperature (C) 36.4 C 12/23/17 13:49 Heart Rate 102 H 12/23/17 13:49 Respiratory Rate 16 12/23/17 13:49 Blood Pressure 120/88 H 12/23/17 13:49 O2 Sat (%) 98 12/23/17 13:49 O2 Delivery Mode Room Air Allergies/Adverse Reactions: Penicillins Allergy (Verified 12/23/17 13:49) Rash succinylcholine Allergy (Verified 12/23/17 13:49) Other-Enter Comments Home Medications: Medication Instructions Recorded Allopurinol [Allopurinol 300 MG 300 mg PO DAILY #0 12/30/16 (RX)] Aspirin [Aspirin 81mg (*)] 81 mg PO DAILY #0 12/30/16 Atorvastatin Calcium [Lipitor 40 40 mg PO DAILY #0 12/30/16 mg (*)] Losartan Potassium [Cozaar 50 mg 100 mg PO HS #0 12/30/16 (*)] amLODIPine BESYLATE [Norvasc 5 mg 5 mg PO DAILY #0 12/30/16 (*)] Ascorbic Acid [Vitamin C 500 mg 500 mg PO DAILY 05/28/17 (*)] Metoprolol Succinate Xr [Toprol Xl 100 mg PO DAILY 05/28/17 100 mg (*)] Docusate Sodium [Colace 100 MG (*)] 100 mg PO BID cap 06/03/17 oxyCODONE/APAP 5/325 [Percocet 1 - 2 tab PO Q4 PRN #30 tab 06/03/17 5/325 (*)] Medical Decision Making ED Course/Re-evaluation: I reviewed the patient's outpatient labs which demonstrate a creatinine of 2.3 which is an acute elevation of a normal baseline. Additionally, the patient is noted to have a Cornybacterium species growing in his urine culture. Patient had an IV established. I did review his CBC which demonstrates no neutropenia. The patient will receive 2 L of normal saline. The setting of his urinary tract infection, dehydration, renal insufficiency and weakness patient will be admitted to the hospitalist service. Differential Diagnosis: Differential diagnosis considered includes urinary tract infection, dehydration , metabolic abnormality, renal failure, neutropenic fever Departure - Departure Disposition: [facility] Inpatient Acute Clinical Impression: Dehydration, Metastatic lung cancer (metastasis from lung to other site), Renal failure Condition: Good Referrals: Dennys Velez MD [Primary Care Provider] - As per Instructions
[2017-12-23] MEDS ORDERED: NS 1,000 ML IV ONE ×2 (14:30)
[2017-12-23] MEDS ORDERED: levOFLOXACIN 500 MG/DEXTROSE 100 ML IV ONE (14:31)
[2017-12-23] MEDS ORDERED: ONDANSETRON 4 MG/2 ML VIAL IVP PRN (14:46)
[2017-12-23] MEDS ORDERED: ACETAMINOPHEN 325 MG TAB PO PRN (14:46)
[2017-12-23] MEDS ORDERED: ONDANSETRON DISINTEGRATING 4 MG TAB PO PRN (14:46)
--- NOTE | 2017-12-23 15:27 | PDGENHP ---
History and Physical - Chief Complaint Acute fatigue - History of Present Illness Primary care provider: Dr. Dennys Velez Primary oncologist: Dr. Ilia Asencio HPI: 72-year-old male presenting with acute fatigue characterized as inability to ambulate across the room secondary to diffuse generalized weakness with associated malaise, hematuria, blood clots in his urine, with onset of symptoms approximately 2 weeks ago and duration persistent and worsening thereafter. The patient reports that he 1st presented to his primary oncologist office, where he was diagnosed as having an ESBL UTI. Prior to culture results being available, the patient received 3 days of levofloxacin, and his reports that he was subjectively feeling better. After the culture results and sensitivities were available, the patient was adjusted to Bactrim, and he completed the total course of the Bactrim prescription. While he was on Bactrim , his reports that his strength worsen, his hematuria continued and his oral intake for solids and liquids decreased. She has subsequently re- presented back to [facility] and reports that his blood pressure has been particularly low, with readings in the 70s, and then the 80s on the day prior to this presentation. He had a repeat urinalysis and urine culture, which are currently demonstrating corynebacterium, as well as a serum creatinine level of 2.3. Of note, the patient has not received chemotherapy since October of 2017, when he was admitted to [facility] for what was identified as a focal seizure. He has currently been dealing with left hip pain which has been evaluated with CT scans at the Cancer Center. Recently, the patient had a Lidoderm patch applied comma but it is unclear whether the cause of his pain is from bony involvement versus osteoarthritis. Of note, the patient has been on a dexamethasone taper since October of 2017, he was most recently adjusted from twice per day to once daily dosing 5 days prior to this presentation. History Information - Allergies/Home Medication List Allergies/Adverse Reactions: Penicillins Allergy (Verified 12/23/17 14:57) Rash succinylcholine Allergy (Verified 12/23/17 14:57) Other-Enter Comments Home Medications: Allopurinol [Allopurinol 300 MG (RX)] 300 mg PO DAILY #0 12/30/16 [Last Taken ] Atorvastatin Calcium [Lipitor 40 mg (*)] 40 mg PO DAILY #0 12/30/16 [Last Taken 12/22/17] Metoprolol Succinate Xr [Toprol Xl 100 mg (*)] 100 mg PO DAILY 05/28/17 [Last Taken 12/22/17] Dexamethasone [Decadron 4 MG (*)] 4 mg PO DAILY 12/23/17 [Last Taken 12/22/17] Folic Acid [Folic Acid 1 MG (*)] 1 mg PO DAILY 12/23/17 [Last Taken 12/22/17] Lidocaine [Lidoderm] 1 each TP DAILY 12/23/17 [Last Taken 12/23/17 0900] levETIRAcetam [Keppra 500 mg (*)] 750 mg PO BID 12/23/17 [Last Taken 12/23/17 AM DOSE] oxyCODONE IR [Oxycodone Ir (*)] 5 mg PO Q4H PRN 12/23/17 [Last Taken 12/22/17] I have personally reviewed and updated: family history, medical history, social history, surgical history - Past Medical History Additional medical history: Metastatic lung cancer status post chemotherapy and immunotherapy as well as brain radiation, both treatment modalities currently on hold. 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 Chronic kidney disease stage III with baseline creatinine 1.1-1.4. Recent focal seizure secondary to brain metastases. Abdominal aortic aneurysm. Recently treated ESBL UTI - Surgical History Additional surgical history: Radical cystectomy with ileal conduit. Laparoscopic colon resection May of 2017. AAA repair. Nephrectomy. Pain stimulator intra-abdominal - Family History Additional family history: No recent sick family contacts - Social History Smoking Status: Former smoker Alcohol Use: None Drug Use: None Additional social history: Lives at home with Review of Systems Review of Systems: ROS: 10pt was reviewed & negative except for what was stated in HPI & below Constitutional: Reports: malaise, weakness, other (Anorexia) Genitourinary: Reports: hematuria Muscolosketal: Reports: joint pain (Left hip) Physical Exam Physical Exam: Temp Pulse Resp BP Pulse Ox 36.4 C 73 14 109/71 97 12/23/17 14:03 12/23/17 15:06 12/23/17 14:03 12/23/17 15:06 12/23/17 15:06 Constitutional: no apparent distress, not in pain, chronically ill appearing, uncomfortable Eyes: PERRL, anicteric sclera, EOMI Ears, Nose, Mouth, Throat: hard of hearing, other (Tacky mucous membranes) Cardiovascular: regular rate and rhythym, no murmur, rub, or gallop (Distant heart sounds), No edema Respiratory: no respiratory distress, no rales or rhonchi, clear to auscultation Gastrointestinal: normoactive bowel sounds, soft, non-tender abdomen, No distension Genitourinary: no bladder tenderness, other (Right lower abdomen ileal conduit bag with brown urine) Neurologic: AAOx3, sensation intact bilaterally, other (No visible tremulousness ), No weakness (Motor strength 5/5 bilateral upper and lower extremities), No facial droop Psychiatric: not anxious, not encephalopathic, flat affect, No agitated Lab Data & Imaging Review 12/23/17 14:25 12/23/17 14:25 WBC 7.46 10^3/uL (3.80-9.50) 12/23/17 14:25 RBC 3.72 10^6/uL (4.40-6.38) L 12/23/17 14:25 Hgb 11.5 g/dL (13.7-17.5) L 12/23/17 14:25 Hct 33.9 % (40.0-51.0) L 12/23/17 14:25 MCV 91.1 fL (81.5-99.8) 12/23/17 14:25 MCH 30.9 pg (27.9-34.1) 12/23/17 14:25 MCHC 33.9 g/dL (32.4-36.7) 12/23/17 14:25 RDW 17.4 % (11.5-15.2) H 12/23/17 14:25 Sodium 137 mEq/L (135-145) 12/23/17 14:25 Potassium 5.2 mEq/L (3.3-5.0) H 12/23/17 14:25 Chloride 109 mEq/L (97-110) 12/23/17 14:25 Carbon Dioxide 20 mEq/l (22-31) L 12/23/17 14:25 Anion Gap 8 mEq/L (6-14) 12/23/17 14:25 BUN 64 mg/dL (7-23) H 12/23/17 14:25 Creatinine 1.7 mg/dL (0.7-1.3) H 12/23/17 14:25 Estimated GFR 40 12/23/17 14:25 Glucose 159 mg/dL (70-100) H 12/23/17 14:25 Calcium 8.9 mg/dL (8.5-10.4) 12/23/17 14:25 Visualized and Interpreted imaging results: Yes Interpretation: Pelvic/hip x-ray demonstrating stimulator present, clips present comma air distension, no fracture Assessment & Plan Assessment: 72-year-old male presents with acute comma complicated urinary tract infection with acute kidney injury on chronic kidney disease stage 3 Plan: 1. Complicated urinary tract infection. Present on admission, acute, new problem this provider, further workup indicated. Most likely secondary to corynebacterium with positive urinalysis, culture drawn on 12/22, likely resistant to Bactrim given patient's progressive worsening over the past week while on Bactrim therapy. I suspect that the patient's original urinary tract infection was ESBL but the corynebacterium may have concomitant Charlie infected him during the time that he was on Bactrim therapy, resulting in clinical worsening as described by the . The patient's urinary tract infection is in the context of an ileal conduit with ostomy bag. -discussed with Dr. Fernando Sanchez, he has reported to me initiation of levofloxacin , agree that we should continue this and monitor culture sensitivity data -check blood cultures given duration of symptoms, and risk of bacteremia 2. Acute kidney injury on chronic kidney disease stage 3. Evidenced by rising serum creatinine level to 2.3 on 12/22, most likely secondary to hypotension secondary to poor oral intake and underlying infection. Baseline creatinine is 1.1-1.4,, he currently does not require renal replacement therapy with a stable potassium level. -give IV normal saline 150 an hour, repeat serum creatinine level in a.m. -monitor strict I&Os, daily weights 3. Metastatic lung cancer. Patient has brain Mets, left hip pain, chemotherapy and radiation therapy currently on hold given progression of disease despite prior treatment modalities, as evidenced by 10/13/2017 bone scan indicating right rib involvement, new L3 possible involvement -order outside records from [facility] including most recent CT imaging to better understand the etiology of the patient's pain located on his left side -continue Lidoderm patch and supportive pain management -continue steroids dosed once daily but if patient becomes hypotensive, provide stress dosing to prevent relative adrenal insufficiency -will notify the oncologist floor person for ongoing consultation and support while he is in the hospital -will continue antiepileptic given recent hospitalization at [facility] for possible focal seizure 4. Colon cancer. Reviewed outside records including 06/01/2017 history and physical by Shahla Moulton and Rafael Jackson, indicating that the patient was to receive laparoscopic colon resection at that time, did not experience any complications thereof. Diet. Regular Prophylaxis. High risk patient, SCDs, hold pharmacologic given ongoing hematuria Code. Full per patient, is MD POA Disposition. Anticipated discharge is uncertain this time, anticipated length stay is greater than 48 hr for reasonable medical necessity including complicated urinary tract infection with acute kidney injury and a highly complex patient with metastatic lung cancer as well as a history of 2 other concomitant malignancies including urothelial carcinoma with ileal conduit as well as adenocarcinoma of the colon.
[2017-12-23 15:32] LABS: PLATELET COUNT 42 10^3/uL (150-400)
[2017-12-23] MEDS ORDERED: SODIUM POLY SULF 15 GM/60 ML BOTTLE PO ONE (15:59)
--- NOTE | 2017-12-23 16:12 | ASMTCMCOM ---
CM Note CM Note Notes: Pt is a 72 y/o man admitted for acute fatigue and unable to ambulate due to generalized weakness. Therapies have been ordered and awaiting recommendations. Needs are TBD at this time. CM to follow. Plan: TBD Date Signed: 12/23/2017 04:11 PM Electronically Signed By:MEERA Oconnor
[2017-12-23] MEDS: NS 1,000 ML IV SCH ×2 (16:34→20:40)
--- NOTE | 2017-12-23 16:35 | PDMN ---
Medical Necessity Medical necessity: MCG: M300 UTI: A-2 days: complicated UTI most likely 2ndary to corynebacterium. +UA, culture, progressively worsening symptoms while on Bactrim, pt with ileal conduit with ostomy bag., ARELI chronic kidney disease stage 3., rising Cr. currently 2.3, Pt with PMHx Met. lung Ca, brain mets, L hip pain chemo and radiation currently on hold. Colon Ca., anticipate > 2 MN ongoing med nec care, further eval and tx.
[2017-12-23] MEDS: levETIRAcetam 250 MG TAB PO SCH (20:39)
[2017-12-23] MEDS: PATCH REMOVAL 1 EA PATCH TD SCH (20:40)
[2017-12-23] MEDS ORDERED: HEPARIN 5,000 UNIT/0.5 ML INJ SC SCH (22:00)
[2017-12-24 06:45] LABS: PLATELET COUNT 43 10^3/uL (150-400)
--- NOTE | 2017-12-24 09:26 | HOSPPROG ---
Hospitalist Progress Note Assessment/Plan: 1. Complicated urinary tract infection * Recently treated for ESBL but culture on 12/22 is growing corenybactererium. Waiting on sensitivities. * Discussed with ID. Will start vancomycin empirically and wait for sensitivities 2. Acute kidney injury on chronic kidney disease stage 3 * Baseline creatinine 1.1-1.4 * Better creatinine today * Continue gentle hydration 3. Metastatic lung cancer with mets to left hip pain, right rib, ?L3 * Continue Lidoderm patch and other pain medications * On dexamethasone possibly for pain control but will have to discuss with Oncology * ?focal seizure * Continue Lamictal * Colon cancer * Status post partial colectomy with colostomy * DVT Prophylaxis * SCD's. Low platelets and hematuria Code. Full per patient, is MD FROST Subjective: Feels better. Eating. Ambulating some. No pain Objective: Vital Signs Temp Pulse Resp BP Pulse Ox 35.8 C L 88 16 127/76 H 98 12/24/17 08:39 12/24/17 08:39 12/24/17 08:39 12/24/17 08:39 12/24/17 08:39 Laboratory Results 12/24/17 06:00 12/24/17 06:00 12/23/17 12/24/17 12/25/17 05:59 05:59 05:59 Intake Total 4848 Output Total 1700 Balance 3148 - Physical Exam Constitutional: no apparent distress, appears nourished, not in pain Eyes: anicteric sclera, EOMI Ears, Nose, Mouth, Throat: moist mucous membranes, hearing normal Cardiovascular: regular rate and rhythym, systolic murmur Respiratory: no respiratory distress Gastrointestinal: normoactive bowel sounds, soft, non-tender abdomen, no palpable masses, other (Colostomy) Skin: warm Neurologic: AAOx3 Psychiatric: interacting appropriately, not anxious, not encephalopathic, thought process linear ICD10 Worksheet Patient Problems: Problems Problem Status Onset Dehydration Acute Metastatic lung cancer (metastasis from lung to other site) Acute Renal failure Acute Colon cancer Acute
[2017-12-24] MEDS: METOPROLOL SUCCINATE XR 100 MG TAB PO SCH (09:48)
[2017-12-24] MEDS: FOLIC ACID 1 MG TAB PO SCH (09:48)
[2017-12-24] MEDS: DEXAMETHASONE 4 MG TAB PO SCH (09:48)
[2017-12-24] MEDS: LIDOCAINE 4%/MENTHOL 1% PATCH TD SCH (09:48)
[2017-12-24] MEDS: levETIRAcetam 250 MG TAB PO SCH ×2 (09:48→20:08)
[2017-12-24] MEDS: ATORVASTATIN CALCIUM 40 MG TAB PO SCH (09:48)
[2017-12-24] MEDS: NS 1,000 ML IV SCH (09:54)
--- NOTE | 2017-12-24 12:12 | CPEKG ---
Test Reason : OPEN Blood Pressure : / mmHG Vent. Rate : 085 BPM Atrial Rate : 085 BPM P-R Int : 165 ms QRS Dur : 084 ms QT Int : 364 ms P-R-T Axes : 040 -49 049 degrees QTc Int : 433 ms Sinus rhythm Inferior infarct, old Confirmed by Kt Vega ([id number]) on 12/24/2017 12:12:09 PM Referred By: Confirmed By:Kt Vega
[2017-12-24] MEDS: VANCOMYCIN 1.5 GM in NS 250 ML IV SCH (12:51)
[2017-12-24] MEDS: oxyCODONE IR 5 MG TAB PO PRN ×2 (13:02→20:14)
--- NOTE | 2017-12-24 14:03 | ASMTCMCOM ---
CM Note CM Note Notes: Pt is being followed by [facility]. His contact there is Alyson Michelle at . Per Alyson, they have been providing pt with 3 hours of nursing care, 1x a week. They would be able to see him more often, every day of the week, but family has been hesitant. They have recommended palliative, but again family has been hesitant. If upon d/c PT/OT is reccomended they have requested we contact [facility]; this will have to be paid through his Medicare. If upon d/c the family agrees to increased nursing care they need 72 hours to submit a request for an increase in care before they can begin those services. Alyson would like it if we could connect with her on Wednesday and update her on pt's condition. It may be appropriate to discuss palliative care with the family while pt is in the hospital. The agency has a relationship with [facility], but will work with whatever agency pt chooses. CM to follow. D/C Plan: Home with [facility] Date Signed: 12/24/2017 02:03 PM Electronically Signed By:Brenda Loo
--- NOTE | 2017-12-24 15:23 | ASMTCMCOM ---
CM Note CM Note Notes: Ira, from [facility] has requested that [facility] fax significant chart information as they are not on [employer]. # . H and P, relevent notes, labs have been sent to them. D/C Plan: Home with [facility]. Date Signed: 12/24/2017 03:19 PM Electronically Signed By:Brenda Loo
[2017-12-24] MEDS: PATCH REMOVAL 1 EA PATCH TD SCH (20:18)
--- NOTE | 2017-12-24 22:22 | GCON ---
DATE OF CONSULTATION: 12/24/2017 REASON FOR CONSULTATION: Metastatic non-small cell lung carcinoma. HISTORY OF PRESENT ILLNESS: Gurwinder is a pleasant 71-year-old gentleman who is followed by my partner, Dr. Ilia Asencio. The patient has a very complicated oncologic history. He was diagnosed initiall y in July of 2016 with recurrent superficial urothelial carcinoma. He underwent multiple transurethra l resection of bladder tumor procedures and ultimately underwent a cystectomy in May of 2016. He w as found to have noninvasive disease. In November of 2016, he developed a right upper lobe mass. Biopsy revealed a non-small cell lung ca rcinoma. His initial staging PET scan revealed right hilar and mediastinal adenopathy as well as inc idental uptake in the sigmoid colon. A subsequent colonoscopy revealed 2 invasive adenocarcinomas. The patient was treated with definitive chemotherapy and radiation for his lung cancer (stage III). Following chemoradiotherapy, he was given durvalumab. He underwent a colectomy for his colon cancers in May of this year. The proximal tumor was a T1 N0 lesion. The distal tumor was a T2 N0 lesion. Unfortunately, the patient recently progressed with a PET scan revealing multiple new sites of metast atic disease including involvement of bone, liver and adrenal gland. The patient was given his 1st cycle of palliative Alimta carboplatin chemotherapy on November 09. A st aging CT of the brain had revealed asymptomatic brain metastasis. However, shortly after his 1st cyc le of chemotherapy, he had a partial seizure and thus, recently completed palliative whole-brain radi ation therapy. Over the past 2 weeks, he has had lethargy and fatigue. He has noted cloudy urine and intermittent b lood clots passing from his ostomy. He was treated with outpatient antibiotic therapy, but symptomat ically became worse and was admitted for inpatient treatment. A urine culture done in the outpatient setting just prior to his admission reveals a Corynebacterium species. The patient has been started on IV vancomycin. When seen this afternoon, he is accompanied by his . He states he feels somewhat better. He is not febrile. He denies flank pain. He reports some mild abdominal pain and constipation. PAST MEDICAL HISTORY: 1. Oncologic history as outlined above. 2. Prior myocardial infarction. 3. History of aortic aneurysm repair. 4. Nephrolithiasis. 5. Remote history of prostate cancer 2002 treated with radical prostatectomy. FAMILY MEDICAL HISTORY: Negative for any known malignancy. 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 He is mar ried. He is a former smoker, quitting approximately 17 years ago. He does not drink alcohol. REVIEW OF SYSTEMS: As outlined above. Remainder of 10-point review of systems otherwise negative. PHYSICAL EXAM: GENERAL: The patient is resting comfortably in bed. He is in no acute distress. HE ENT: Pupils equal, sclerae nonicteric. Conjunctiva normal. HEART: Regular without murmur. LUNGS: Clear bilaterally. No flank tenderness bilaterally. ABDOMEN: Soft, nontender, nondistended with no organomegaly or mass. No extremity swelling or edema. The patient has a urostomy in the right lo wer quadrant. No skin rash. Alert, oriented and appropriate. LABORATORY STUDIES: White count 5.5, hemoglobin of 10.1, hematocrit 31.3, platelet count is 43,000. Sodium 142, potassium 4.6, chloride 118, bicarb 18, BUN 53, creatinine 1.5, calcium 7.9. Urine cult ure shows Corynebacterium urealyticum. A prior urine culture done 12/10/2017, reveals ESBL E coli. IMPRESSION: 1. Metastatic non small cell lung carcinoma, status post recent palliative Alimta carboplatin chemot herapy. 2. Brain metastasis secondary to #1. Status post recent completion of whole-brain radiotherapy. 3. History of noninvasive bladder carcinoma status post cystectomy. 4. Complicated urinary tract infection, likely secondary to Corynebacterium. 5. Chemotherapy-induced anemia. Alejandro is a pleasant 72-year-old gentleman who is currently receiving palliative chemotherapy for me tastatic non-small cell lung carcinoma. He has a very complicated oncologic history as is detailed a chandan. He is admitted now with weakness and fatigue. It appears that he has a UTI, though isolating the exa ct bacteria will be difficult given his urostomy. He is currently receiving empiric therapy with van comycin. Therapy will be tailored based on the results of urine culture sensitivities as they become available. I recommend continuing his current management. It is certainly possible that some degree of his fatigue may be related to his recent whole-brain rad iotherapy. His anemia and thrombocytopenia are related to recent chemotherapy administration. The plan is to continue further palliative chemotherapy in the outpatient setting. Dr. Asencio had planned to transition the patient to Alimta monotherapy given the degree of anemia and thrombocytopen ia, he experienced with his 1st cycle of Alimta, carboplatin. Our service will continue to follow the patient during his hospital stay. The patient and his had multiple questions which were answered. Total time for today's visit was approximately 40 minutes of which greater than 50% was spent in coun seling and care coordination. /[id number]/MODL
[2017-12-25 06:12] LABS: PLATELET COUNT 32 10^3/uL (150-400)
--- NOTE | 2017-12-25 09:13 | SOAPPROG ---
SOAP Progress Note Assessment/Plan: Assessment/Plan: Patient is a 72 year old male with metastatic non small cell lung cancer currently on a [place] doublet who presents with weakness and hematuria, concerning for a urinary tract infection. #Weakness Likely multifactorial from perhaps UTI, ARELI and recent administration of chemotherapy -continue antibiotics with help of ID for corynebacterium -PT/OT, will likely need discharge to acute rehabilitation #Corynebacterium UTI Patient has symptoms of weakness and hematuria. Currently on vancomycin -continue antibiotics, follow-up sensitivities #Metastatic NSCLC Recently received carboplatin and pemetrexed palliatively -follow-up as an outpatient with Dr. Asencio #Acute on chronic renal dysfunction Currently resolved, at baseline creatinine #Bicytopenia secondary to chemotherapy Patient with anemia and thrombocytopenia, likely secondary to chemotherapy Rupert Kelley 12/25/17 09:17 Subjective: Patient reports feeling well. No fevers chill or night sweats. Seems better since admission in his eyes, including some improved strength. No new aches or pains. Objective: Vital Signs Temp Pulse Resp BP Pulse Ox 36.3 C 82 14 132/68 H 96 12/25/17 08:00 12/25/17 08:00 12/25/17 08:00 12/25/17 08:00 12/25/17 08:00 Laboratory Results 12/25/17 05:00 12/25/17 05:00 12/24/17 12/25/17 12/26/17 05:59 05:59 05:59 Intake Total 4848 1520 350 Output Total 1700 2175 200 Balance 3148 -655 150 General: no acute distress, non toxic appearing HEENT: PERRL, no icterus or pallor, oral mucosa is moist without lesions Neck: supple, no adenopathy CV: RRR without rubs thrills and gallops Lungs; Clear to auscultation and percussion bilateral posterior lungs Abdomen: urostomy with bloody urine, soft, non tender, non -distended, no HSM Extremities; warm and well perfused, 2+ dp and radial pulses bilaterally, no active arthritis Neurologic: alert and oriented ICD10 Worksheet Patient Problems: Problems Problem Status Onset Dehydration Acute Metastatic lung cancer (metastasis from lung to other site) Acute Renal failure Acute Colon cancer Acute
--- NOTE | 2017-12-25 09:32 | HOSPPROG ---
Hospitalist Progress Note Assessment/Plan: 1. Complicated urinary tract infection * Recently treated for ESBL but culture on 12/22 is growing corenybactererium. Sensitivities would need to be sent out. * Will discuss with ID. Cont vancomycin empirically and wait for sensitivities 2. Acute kidney injury on chronic kidney disease stage 3 * Baseline creatinine 1.1-1.4 * resolved 3. Metastatic lung cancer with mets to left hip pain, right rib, ?L3 * Continue Lidoderm patch and other pain medications * On dexamethasone possibly for pain control but will have to discuss with Oncology * ?focal seizure * Continue Lamictal * Colon cancer * Status post partial colectomy with colostomy * DVT Prophylaxis * SCD's. Low platelets and hematuria *Weakness * PT is saying will need SNF Code. Full per patient, is MD FR[facility] Subjective: still pretty weak but feeling better Objective: Vital Signs Temp Pulse Resp BP Pulse Ox 36.3 C 82 14 132/68 H 96 12/25/17 08:00 12/25/17 08:00 12/25/17 08:00 12/25/17 08:00 12/25/17 08:00 Laboratory Results 12/25/17 05:00 12/25/17 05:00 12/24/17 12/25/17 12/26/17 05:59 05:59 05:59 Intake Total 4848 1520 350 Output Total 1700 2175 200 Balance 3148 -655 150 - Physical Exam Constitutional: no apparent distress, appears nourished, not in pain Eyes: anicteric sclera, EOMI Ears, Nose, Mouth, Throat: moist mucous membranes Cardiovascular: regular rate and rhythym Respiratory: no respiratory distress Gastrointestinal: normoactive bowel sounds, soft, non-tender abdomen, no palpable masses, other (colostomy) Neurologic: AAOx3 Psychiatric: interacting appropriately, not anxious, not encephalopathic, thought process linear ICD10 Worksheet Patient Problems: Problems Problem Status Onset Dehydration Acute Metastatic lung cancer (metastasis from lung to other site) Acute Renal failure Acute Colon cancer Acute
[2017-12-25] MEDS: oxyCODONE IR 5 MG TAB PO PRN ×2 (09:48→20:52)
[2017-12-25] MEDS: levETIRAcetam 250 MG TAB PO SCH ×2 (09:48→20:52)
[2017-12-25] MEDS: DEXAMETHASONE 4 MG TAB PO SCH (09:49)
[2017-12-25] MEDS: METOPROLOL SUCCINATE XR 100 MG TAB PO SCH (09:49)
[2017-12-25] MEDS: LIDOCAINE 4%/MENTHOL 1% PATCH TD SCH (09:49)
[2017-12-25] MEDS: ATORVASTATIN CALCIUM 40 MG TAB PO SCH (09:49)
[2017-12-25] MEDS: FOLIC ACID 1 MG TAB PO SCH (09:49)
[2017-12-25] MEDS: VANCOMYCIN 1.5 GM in NS 250 ML IV SCH (11:04)
--- NOTE | 2017-12-25 14:48 | ASMTCMCOM ---
CM Note CM Note Notes: CM spoke to PEPE Rene regarding d/c POC. CM met w/ pt for dispo planning. PT is recommending SNF. Pt reports that he needs to think about it. CM provided pt w/ senior blue book. Anju reports that pt can hardly walk to the bathroom by himself. CM to follow. Plan: TBD Date Signed: 12/25/2017 02:47 PM Electronically Signed By:MEERA Oconnor
[2017-12-25] MEDS: PATCH REMOVAL 1 EA PATCH TD SCH (21:03)
[2017-12-26] MEDS: FOLIC ACID 1 MG TAB PO SCH (09:33)
[2017-12-26] MEDS: DEXAMETHASONE 4 MG TAB PO SCH (09:33)
[2017-12-26] MEDS: METOPROLOL SUCCINATE XR 100 MG TAB PO SCH (09:33)
[2017-12-26] MEDS: ATORVASTATIN CALCIUM 40 MG TAB PO SCH (09:33)
[2017-12-26] MEDS: levETIRAcetam 250 MG TAB PO SCH ×2 (09:33→20:07)
[2017-12-26] MEDS: LIDOCAINE 4%/MENTHOL 1% PATCH TD SCH (09:34)
--- NOTE | 2017-12-26 10:22 | HOSPPROG ---
Hospitalist Progress Note Assessment/Plan: DIAGNOSES: * acute complicated urinary tract infection * bacteremia with gram-positive cocci in chains suggest a strep Genus bacteria * acute kidney injury * suspected recent seizure on new therapy * urothelial cancer status post cystectomy * stage III non-small cell lung cancer status post chemo radiotherapy and durvalumab * colon cancer status post resection with colostomy * deconditioning and gait instability with high fall risk * anemia, normocytic, worsening here, along with thrombocytopenia which is also worsening * Unclear why this is worsening but likely due to his cancers and therapies and his infection I reviewed in detail today with Dr. 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: Exam: alert oriented skin warm dry color ok resps not labored lungs clear BSs heart regular abd soft nondistended nontender, bowel sounds present limbs warm, no edema iv site ok Laboratory data: Hemoglobin is decreased to 8.8, and platelets 32 White count good Creatinine down to 1.3 Objective: Vital Signs Temp Pulse Resp BP Pulse Ox 36.0 C 95 16 92/68 L 97 12/26/17 07:32 12/26/17 07:32 12/26/17 07:32 12/26/17 07:32 12/26/17 07:32 Microbiology 12/23/17 16:30 Blood Panel (PCR) - Final Blood No Organism Detected Laboratory Results 12/25/17 05:00 12/25/17 05:00 12/25/17 12/26/17 12/27/17 06:59 06:59 06:59 Intake Total 1520 950 Output Total 2375 250 225 Balance -855 700 -225 - Time Spent With Patient Time Spent with Patient: greater than 35 minutes Time Spent with Patient: Greater than 35 minutes spent on this patients care, greater than 50% of time spent counseling, educating, and coordinating care regarding the above mentioned plan. ICD10 Worksheet Patient Problems: Problems Problem Status Onset Dehydration Acute Metastatic lung cancer (metastasis from lung to other site) Acute Renal failure Acute Colon cancer Acute
[2017-12-26] MEDS: VANCOMYCIN 1.5 GM in NS 250 ML IV SCH (10:38)
--- NOTE | 2017-12-26 10:42 | GCON ---
INPATIENT INFECTIOUS DISEASE CONSULTATION REFERRING PHYSICIAN: Shauan Monk MD REASON FOR REFERRAL: Gram-positive cocci bacteremia. HISTORY OF PRESENT ILLNESS: Patient is a 72-year-old male with a past medical history of metastatic lung cancer, as well as urothelial carcinoma that resulted in a cystectomy 2 years ago. Patient now has an ileal conduit urinary collection system. He has had occasional problems with urinary tract in fections, but nothing as significant as this episode. This episode began approximately 2-1/2 weeks a go when he became somewhat sluggish and was tested by his primary care physician or oncologist, which showed ESBL E coli in his urine. This was interpreted as a urinary tract infection and he was treat ed initially empirically with Levaquin and then changed ultimately to Bactrim. Patient did not do we ll on Bactrim and his symptoms of illness continued. The patient was admitted to [facility] on 12/23/2017, after followup at his primary oncologist office where he showed signs of hypoten adrian. Blood cultures drawn on 12/23/2017, are growing in both sets, gram-positive cocci in chains. BCID was unable to identify. Patient is currently on vancomycin 1.5 g IV q.24 hours. Patient naomy gagnon had demonstrated some acute renal failure with a creatinine of 1.7, is now resolved down to creat inine 1.3. Currently, he is resting comfortably in his hospital bed. No new complaints. No rash. PAST MEDICAL HISTORY: 1. Metastatic lung cancer. 2. Urothelial carcinoma. 3. Chronic kidney disease. Baseline creatinine 1.1 to 1.4. 4. Seizure, secondary to brain metastases. 5. Abdominal aortic aneurysm. PAST SURGICAL HISTORY: 1. Status post renal cystectomy with ileal conduit. 2. Status post laparoscopic colon resection. 3. Abdominal aortic aneurysm repair. 4. Nephrectomy. 5. Placement of pain stimulator. ANTIBIOTICS: Vancomycin. ALLERGIES: The patient is allergic to penicillins, as well as succinylcholine. FAMILY HISTORY: Reviewed, but noncontributory. SOCIAL HISTORY: Former smoker. No alcohol or drug use. Patient is . REVIEW OF SYSTEMS: Other than that detailed above his present illness, comprehensive 10-system revie w is negative. PHYSICAL EXAMINATION: VITAL SIGNS: Temperature maximum 36.9, temperature current 36 0, heart rate i s 95, respiratory rate is 16, blood pressure is 92/68. GENERAL: The patient is a well-formed, well- nourished older male in no acute distress. He is not toxic in appearance. He is alert and oriented x3. He has a pleasant demeanor. HEENT: Normocephalic for age. Atraumatic. No scleral icterus. N o drainage from the nares. Eyes: Lids and conjunctivae are within normal limits. Pupils are equal and round bilaterally. NECK: Supple. No meningismus. LUNGS: Clear to auscultation bilaterally. Good effort. HEART: Regular rate and rhythm. No significant peripheral edema. SKIN: Warm and dry to the touch. No rash or lesions seen. MUSCULOSKELETAL: No muscle point tenderness is noted. No joint line effusion or arthritis is seen. LABORATORY DATA: Patient has a CBC dated 12/25/2017, shows a white blood cell count of 4.0, hemoglob in of 8.8, hematocrit 26.6, platelet count of 32. Differential shows 84% segmented neutrophils, 9% b and forms. Serum chemistries on 12/25/2017, show sodium of 143, potassium 4.2, chloride 118, bicarb 22, BUN of 42, and creatinine 1.3. MICROBIOLOGIC DATA: Patient has blood cultures dated 12/23/2017, 2/2 sets are growing gram-positive cocci in chains. This was confirmed with a call to microbiology this morning. BCID multiplex PCR pl atform did not detect any pathogens from these positive blood cultures. Awaiting identification. ASSESSMENT: Bacteremia, secondary to gram-positive cocci in chains. This limits the genus choice to probably streptococci, as well as enterococci. Neither one of these appeared definitively on prior urine cultures, although with the ileal conduit collection system, either are very possible, and in f act should be huslia to the reformed collection system. Interestingly, neither Levaquin, nor Bactrim are typically reliable covers of either of these possible causes. At this point, the patient is on vancomycin, which is adjusted to renal function. Awaiting a vancomycin trough today. We will contin ue this dose and adjust by vancomycin level. Will await identification of pathogen in the blood. PLAN: 1. Continue vancomycin. 2. Check vancomycin trough. 3. Adjust antibiotic choice based on micro identification. /[id number]/MODL
--- NOTE | 2017-12-26 14:52 | SOAPPROG ---
SOAP Progress Note Assessment/Plan: Assessment/Plan: Patient is a 72 year old male with metastatic non small cell lung cancer currently on a [place] doublet who presents with weakness and hematuria, found to have bacteremia - GPC in chains. #Weakness Likely multifactorial from perhaps bacteremia, ARELI and recent administration of chemotherapy -continue antibiotics with help of ID -PT/OT #Bacteremia GPC in chains, not consistent with isolated in urine, perhaps from port? -continue vancomycin, ID is following #?Corynebacterium UTI Now that has bacteremia, likely better explanation for symptoms than polymicrobial urine from urostomy bag #Metastatic NSCLC Recently received carboplatin and pemetrexed palliatively -follow-up as an outpatient with Dr. Asencio #Acute on chronic renal dysfunction Currently resolved, at baseline creatinine #Bicytopenia secondary to chemotherapy Patient with anemia and thrombocytopenia, likely secondary to chemotherapy Rupert Kelley 12/26/17 14:49 Subjective: Patient reports feeling well. No fevers or sweats. Weakness has all but resolved. Objective: Vital Signs Temp Pulse Resp BP Pulse Ox 36.6 C 91 14 102/60 98 12/26/17 11:19 12/26/17 11:19 12/26/17 11:19 12/26/17 11:19 12/26/17 11:19 Microbiology 12/23/17 16:30 Blood Panel (PCR) - Final Blood No Organism Detected Laboratory Results 12/25/17 05:00 12/25/17 05:00 12/25/17 12/26/17 12/27/17 05:59 05:59 05:59 Intake Total 1520 950 Output Total 2175 450 225 Balance -655 500 -225 General: no acute distress, non toxic appearing HEENT: PERRL, no icterus or pallor, oral mucosa is moist without lesions Neck: supple, no adenopathy CV: RRR without rubs thrills and gallops Lungs; Clear to auscultation and percussion bilateral posterior lungs Abdomen: urostomy with bloody urine, soft, non tender, non -distended, no HSM Extremities; warm and well perfused, 2+ dp and radial pulses bilaterally, no active arthritis Neurologic: alert and oriented ICD10 Worksheet Patient Problems: Problems Problem Status Onset Dehydration Acute Metastatic lung cancer (metastasis from lung to other site) Acute Renal failure Acute Colon cancer Acute
[2017-12-26] MEDS: PATCH REMOVAL 1 EA PATCH TD SCH (20:34)
[2017-12-27 06:34] LABS: PLATELET COUNT 40 10^3/uL (150-400)
[2017-12-27] MEDS: levETIRAcetam 250 MG TAB PO SCH ×2 (08:48→20:14)
[2017-12-27] MEDS: METOPROLOL SUCCINATE XR 100 MG TAB PO SCH (08:48)
[2017-12-27] MEDS: DEXAMETHASONE 4 MG TAB PO SCH (08:49)
[2017-12-27] MEDS: FOLIC ACID 1 MG TAB PO SCH (08:49)
[2017-12-27] MEDS: ATORVASTATIN CALCIUM 40 MG TAB PO SCH (08:49)
[2017-12-27] MEDS: LIDOCAINE 4%/MENTHOL 1% PATCH TD SCH (08:52)
--- NOTE | 2017-12-27 10:00 | PCMIDPN ---
Assessment/Plan: Assessment: Gram-positive bacteremia-pathogen not identified yet by micro lab. Currently on empiric vancomycin. Clinically he is doing better. He self reports improvement in energy and appetite. His urine from the ileal conduit is quite discolored. He states it has been like this for the last 2 weeks. Suspect this is indicative of the upper urinary tract inflammation and site of crossover to the blood stream. Will recheck CBC and CMP today. Will also recheck blood cultures for documentation of clearance. Vancomycin trough yesterday is within scope. Plan: 1. Continue IV vancomycin at present dose. 2. Follow up on micro identification. 3. Recheck laboratories and cultures as above. 12/27/17 09:57 Subjective: Patient is resting in his hospital bed. He states that he is feeling significantly better. He denies any rash. Denies any abdominal pain. States he has had a good appetite this morning. He also notes that he is able to get up and walk by himself. Objective: Vancomycin # 4 Vital Signs Temp Pulse Resp BP Pulse Ox 36.1 C 97 15 119/70 98 12/27/17 08:23 12/27/17 08:23 12/27/17 08:23 12/27/17 08:48 12/27/17 08:23 Microbiology 12/23/17 16:30 Blood Panel (PCR) - Final Blood No Organism Detected Laboratory Results 12/27/17 04:50 12/25/17 05:00 12/26/17 12/27/17 12/28/17 05:59 05:59 05:59 Intake Total 950 200 200 Output Total 450 2100 250 Balance 500 -1900 -50 - Physical Exam General Appearance: WD/WN, alert, no apparent distress, non-toxic Respiratory: lungs clear, normal breath sounds, No respiratory distress Cardiac/Chest: regular rate, rhythm, No tachycardia Skin: normal color, warm/dry, No rash Neuro/Psych: alert, normal mood/affect, oriented x 3 ICD10 Worksheet Patient Problems: Problems Problem Status Onset Dehydration Acute Metastatic lung cancer (metastasis from lung to other site) Acute Renal failure Acute Colon cancer Acute
--- NOTE | 2017-12-27 10:45 | HOSPPROG ---
Hospitalist Progress Note Assessment/Plan: DIAGNOSES: * gross hematuria ongoing for 2 weeks with urostomy in place and history of urothelial cell cancer and cystectomy * Thrombocytopenia may be contributing but does not seem severe enough to be the out right cause * Suspect an anatomic lesion of some type * post hemorrhagic anemia due to above * doubtful significance of multiple organisms grown in urine culture during this admission * bacteremia with gram-positive cocci in chains suggest a strep Genus bacteria; uncertain source, ? Port or other skin lesion * acute kidney injury resolved * suspected recent seizure, on new therapy * stage III non-small cell lung cancer status post chemo radiotherapy and durvalumab * colon cancer status post resection with colostomy * deconditioning and gait instability with high fall risk I reviewed in detail today with Dr. Damien Ravi and Seen by me on hospitals rounds today as well as multidisciplinary Cancer Care rounds PLANS: * Urology consult requested to evaluate hematuria * Follow hemoglobin closely; will check iron levels and replace if deficient * Continue vancomycin pending final identification of the organism in blood cultures * Continue hydration, follow renal function closely * PT and OT, fall risk precautions * DVT prophylaxis no medicine being used due to his bleeding and anemia with low platelets * Continue current therapy for seizure SUBJECTIVE: Slightly stronger today though still weaker than baseline, appetite better No seizure-like symptoms Denies any urinary symptoms or problems with his urostomy OBJECTIVE Vitals reviewed: Overall 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 without fever at 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 time 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, 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: Exam: alert oriented skin warm dry color ok resps not labored lungs clear BSs heart regular abd soft nondistended nontender, bowel sounds present; at this point is having gross hematuria from his urostomy which he says has been present now for 2 weeks limbs warm, no edema iv site ok Laboratory data: Hemoglobin is decreased to 8.8, and platelets 32 White count good Creatinine down to 1.3 Objective: Vital Signs Temp Pulse Resp BP Pulse Ox 36.1 C 97 15 119/70 98 12/27/17 08:23 12/27/17 08:23 12/27/17 08:23 12/27/17 08:48 12/27/17 08:23 Microbiology 12/23/17 16:30 Blood Panel (PCR) - Final Blood No Organism Detected Laboratory Results 12/27/17 04:50 12/25/17 05:00 12/26/17 12/27/17 12/28/17 06:59 06:59 06:59 Intake Total 950 200 200 Output Total 250 2100 250 Balance 700 -1900 -50 ICD10 Worksheet Patient Problems: Problems Problem Status Onset Dehydration Acute Metastatic lung cancer (metastasis from lung to other site) Acute Renal failure Acute Colon cancer Acute
[2017-12-27] MEDS: VANCOMYCIN 1.5 GM in NS 250 ML IV SCH (11:13)
--- NOTE | 2017-12-27 11:58 | WOCRNPDOC ---
SKINNY Advanced Assessment Note - Skin Integrity Problem, Advanced Assess Right Ischial Tuberosity Pressure Injury Dressing Type: Open to Air Integumentary Issue Intervention: Barrier Cream Applied [place]ma Wound Tissue: Erythema, Non-blanching, Swollen, Painful/Tender [place] Wound Swelling: Moderate Wound Bed Constitution: Adhered Slough (100%) Site Measurement - Head-to-Toe Length X Width X Depth (cm): 1x1.5x0.3 Pressure Injury Stage: Unstageable Pressure Injury Present on Admit: Yes Skin Integrity Problem Comment: Unstageable pressure injury present on admission. Wound bed cleaned with normal saline and gauze. Unable to visualize wound bed due to slough. Patient is incontinent of stool, and perineal area is painful to patient when touched and/or cleaned. Wound care will round again later this week. Coccyx Pressure Injury Dressing Type: Open to Air Exudate Amount: Moderate Exudate Color: Reddish/Yellow Integumentary Issue Intervention: Barrier Cream Applied [place] Wound Tissue: Erythema, Non-blanching, Raw, Swollen, Denuded, Painful/ Tender [place] Wound Swelling: Moderate Wound Bed Color: [place], Red, Yellow Wound Bed Constitution: Red/[place] - Non Granular Tissue (60%), Adhered Slough (40 %) Site Measurement - Head-to-Toe Length X Width X Depth (cm): 8x4x0.3 Pressure Injury Stage: Unstageable Pressure Injury Present on Admit: Yes Skin Integrity Problem Comment: Present on admission unstageable pressure injury.Patient states area is very painful. Wound bed cleaned with normal saline and gauze. Slough visible in proximal wound as well as along left side of coccyx. Moisture related dermatitis component of wound due to incontinence of stool, which extends from sacrum to scrotum. Patient would benefit from rectal tube placement to manage stool to allow skin to heal. RN Sheri in room for care. Education provided to RN and patient about stool management. Wound care will round again this week. - Urostomy Assessment, Advanced Right Abdomen Urostomy Urostomy Appliance Intact: Yes Urostomy Appliance Currently in Use: Two Piece Convex, 1 3/4, Cut to Fit Urostomy Accessory: Belt, Barrier Ring, Strip Paste Stoma Color: Red, White Stoma Turgor: Moist Stoma Shape: Round Stoma Height: Recessed Mucocutaneus Junction: Intact Urostomy Effluent: Bloody Peristomal Skin: Erythematic, Raw Peristomal Skin Complications: Irritant Contact Dermatitis Urostomy Comment/Treatment Details: Patient's does ostomy changes. Consult to visualize stoma and peristomal skin for source of hematuria. Stoma is producing bright red blood from center of stoma. Source does not appear to be the stoma. Peristomal skin has evidence of dermatitis. Patient's stated that she suspected that chemotherapy caused skin breakdown, and patient went to outpatient wound clinic for treatment. Stoma is red with ring of white discoloration from 4 to 9 oclock, kaufman shaped covering about half of distance between stoma os and mucocutaneous junction. Stoma and periwound skin cleaned with water and washcloth. Allowed to air dry. Barrier ring with stoma paste applied to bilateral horizontal creases. New two piece appliance placed. Wound care will sign off.
--- NOTE | 2017-12-27 12:18 | ASMTCMCOM ---
CM Note CM Note Notes: Pt's son has moved to [place] and plans to live with his father until his father moves to [place] to live with his daughter and son-in-law; this will occur in approximately 3 months. [facility] will be providing in-home care. Son has been given the Blue Book with its list of private unskilled services. CM to follow. D/C Plan: Home with son, [facility] RN/PT/OT/SW Date Signed: 12/27/2017 12:17 PM Electronically Signed By:Brenda Loo
--- NOTE | 2017-12-27 12:19 | ASMTCMCOM ---
CM Note CM Note Notes: Please ignore last note, written for incorrect pt. Date Signed: 12/27/2017 12:18 PM Electronically Signed By:Brenda Loo
--- NOTE | 2017-12-27 13:57 | ASMTCMCOM ---
CM Note CM Note Notes: PT has recommended SNF. Pt's would like [facility] as they live in [place]. referrals will be sent out to [facility] along with other SNF's in case [facility] is unable to take his insurance. His insurance is through the [employer]. Pt's is bringing in his advocate's name and phone number tomorrow in case the SNF needs help accessing that insurance. [facility] will be notified of referrals. CM to follow. D/C Plan: SNF/Rehab Date Signed: 12/27/2017 01:56 PM Electronically Signed By:Brenda Loo
--- NOTE | 2017-12-27 14:04 | ASMTCMCOM ---
CM Note CM Note Notes: CM called [facility] and left a message requesting recommendations for SNF's that were more likely to accept this insurance. Their number is [phone]. D/C Plan: SNF Date Signed: 12/27/2017 02:03 PM Electronically Signed By:Brenda Loo
--- NOTE | 2017-12-27 14:10 | SOAPPROG ---
JHONNY Progress Note Assessment/Plan: Assessment: Bladder cancer Acute SP cystoprostatectomy Hematuria Acute assessment in progress with CAT urogram to rule out upper tract path, may be related to the thrombocytopenia Plan: CAT scan 12/27/17 14:10 Subjective: hematuria, asked by Dr. Jones to assess, plan for CAT scan, recent pet report noted no pathology Objective: Vital Signs Temp Pulse Resp BP Pulse Ox 36.1 C 80 15 115/65 94 12/27/17 11:43 12/27/17 11:43 12/27/17 11:43 12/27/17 11:43 12/27/17 11:43 Microbiology 12/23/17 16:30 Blood Panel (PCR) - Final Blood No Organism Detected Laboratory Results 12/27/17 04:50 12/27/17 11:05 12/26/17 12/27/17 12/28/17 05:59 05:59 05:59 Intake Total 950 200 200 Output Total 450 2100 750 Balance 500 -1900 -550 Physical Exam - Physical Exam General Appearance: no apparent distress ICD10 Worksheet Patient Problems: Problems Problem Status Onset Bladder cancer Acute Dehydration Acute Hematuria Acute Metastatic lung cancer (metastasis from lung to other site) Acute Renal failure Acute Colon cancer Acute - ICD10 Problem Qualifiers (1) Hematuria (2) Bladder cancer
[2017-12-27] MEDS ORDERED: IOPAMIDOL (ISOVUE-300) 100 ML BTL ONE (17:03)
[2017-12-27] MEDS: PATCH REMOVAL 1 EA PATCH TD SCH (20:16)
[2017-12-28 05:49] LABS: PLATELET COUNT 29 10^3/uL (150-400)
--- NOTE | 2017-12-28 10:02 | PCMIDPN ---
Assessment/Plan: 72 year old male with metastatic non small cell lung cancer and h/o bladder CA s /p Radical cystectomy with ileal conduit and L nephrectomy who presented w weakness and hematuria, found to have ARF and streptococcal bacteremia. CT showed possible lesion in remaining R kidney - clot vs mass. ANC 2650 # GPC chains bacteremia, unclear source as UCx from 12/22 does not correspond to blood cx --based on prelim report of blood cx patient narrowed to ceftriaxone yesterday --monitor repeat blood cultures # ARF: repeat Cr this AM; ceftriaxone liver metabolized, no renal dosing # H/o ESBL E coli: contact precautions # thrombocytopenia: marked hematuria and HCT trending down, defer to oncology about whether needs platelet transfusion. Stoma reportedly appears normal Microbiology 12/27/17 blood cx (2) pending 12/23/17 16:30 Blood Cx 2/2 GPC chains (prelim viridans group) 12/22/17 11:00 Urine Cx: Corynebacterium Urealyticum Staphylococcus Sp Coag Neg [place] Types meds Abx #5 ceftriaxone 2gm IV daily, #1 s/p vancomycin IV Subjective: patient has no c/o Objective: Vital Signs Temp Pulse Resp BP Pulse Ox 36.4 C 87 16 112/76 95 12/28/17 08:35 12/28/17 08:35 12/28/17 08:35 12/28/17 08:35 12/28/17 08:35 Microbiology 12/23/17 16:30 Blood Panel (PCR) - Final Blood No Organism Detected Laboratory Results 12/28/17 05:25 12/27/17 11:05 12/27/17 12/28/17 12/29/17 05:59 05:59 05:59 Intake Total 200 1025 Output Total 2100 1950 Balance -1900 -925 - Physical Exam General Appearance: alert, obese EENT: pale conjunctiva, dry mucous membranes, No thrush Respiratory: lungs clear, No accessory muscle use Neck: supple Cardiac/Chest: regular rate, rhythm Extremities: No pedal edema Abdomen: non-tender, soft, other (bag over ileal conduit w gross hematuria) Male Genitalia: No peter Skin: pallor, No diaphoresis, No rash Neuro/Psych: alert, depressed affect - Line/s Mediport Lines: other (L chest wall), No drainage, No erythema - Time Spent With Patient Time Spent with Patient: greater than 35 minutes (care coordinated with oncology and hospitalists) Time Spent with Patient: Greater than 35 minutes spent on this patients care, greater than 50% of time spent counseling, educating, and coordinating care regarding the above mentioned plan. ICD10 Worksheet Patient Problems: Problems Problem Status Onset Bladder cancer Acute Dehydration Acute Hematuria Acute Metastatic lung cancer (metastasis from lung to other site) Acute Renal failure Acute Colon cancer Acute
[2017-12-28] MEDS: LIDOCAINE 4%/MENTHOL 1% PATCH TD SCH (10:03)
[2017-12-28] MEDS: METOPROLOL SUCCINATE XR 100 MG TAB PO SCH (10:04)
[2017-12-28] MEDS: FOLIC ACID 1 MG TAB PO SCH (10:05)
[2017-12-28] MEDS: DEXAMETHASONE 4 MG TAB PO SCH (10:05)
[2017-12-28] MEDS: ATORVASTATIN CALCIUM 40 MG TAB PO SCH (10:05)
[2017-12-28] MEDS: levETIRAcetam 250 MG TAB PO SCH ×2 (10:05→20:28)
--- NOTE | 2017-12-28 13:17 | SOAPPROG ---
SOAP Progress Note Assessment/Plan: Assessment: Hematuria-- question clot vs mass in right kidney Plan: Dr Jurado and I have reviewed images and recommend repeat imaging, consideration of biopsy in future once patient is doing better. Question blood clot vs mass in right kidney 12/28/17 13:16 Subjective: Feels better than yesterday Objective: Vital Signs Temp Pulse Resp BP Pulse Ox 36.4 C 87 16 112/76 95 12/28/17 08:35 12/28/17 10:04 12/28/17 08:35 12/28/17 10:04 12/28/17 08:35 Microbiology 12/23/17 16:30 Blood Panel (PCR) - Final Blood No Organism Detected Laboratory Results 12/28/17 05:25 12/28/17 11:04 12/27/17 12/28/17 12/29/17 05:59 05:59 05:59 Intake Total 200 1025 Output Total 2100 1950 Balance -1900 -925 Physical Exam - Physical Exam General Appearance: alert, no apparent distress Respiratory: normal breath sounds, No respiratory distress Abdomen: normal bowel sounds, non-tender, other (blood in ostomy bag) Skin: warm/dry, pallor Neuro/Psych: alert, normal mood/affect ICD10 Worksheet Patient Problems: Problems Problem Status Onset Bladder cancer Acute Dehydration Acute Hematuria Acute Metastatic lung cancer (metastasis from lung to other site) Acute Renal failure Acute Colon cancer Acute
--- NOTE | 2017-12-28 13:37 | ASMTCMCOM ---
CM Note CM Note Notes: Patient's plan of care reviewed in rounds. Ileal conduit oozing, H&H decreased. Otherwise no c/o pain, or nausea. CM to follow. Family wishes he go to [facility] upon discharge. Plan: [facility] when medically cleared for discharge. Date Signed: 12/28/2017 12:26 PM Electronically Signed By:Charlee Li RN
[2017-12-28 14:28] LABS: INR 1.26 (0.83-1.16)
--- NOTE | 2017-12-28 16:57 | SOAPPROG ---
SOAP Progress Note Assessment/Plan: Assessment: This is a very pleasant 72-year-old male with history of metastatic non-small cell lung cancer who was admitted for significant hematuria. 1. Hematuria: He has been followed by Urology. His platelets are 29 which could be secondary to consumption alongside previous exposure to carboplatin and pemetrexed. I have recommended platelet transfusion today. 2. Thrombocytopenia: See 1. 3. Anemia: I have recommended transfusion with PRBCs today. 4. Bacteremia: He has been followed by infectious disease. The switch antibiotic to ceftriaxone today. All questions were answered. He voices understanding of the plan. 12/28/17 16:55 Subjective: He continues to have symptoms of hematuria with passing of clots. He has no chest pain shortness of breath. He has no fevers. He has no dysuria. He has no other complaints today aside from slight fatigue and dizziness on standing. Objective: Vital Signs Temp Pulse Resp BP Pulse Ox 36.4 C 87 16 112/76 95 12/28/17 08:35 12/28/17 10:04 12/28/17 08:35 12/28/17 10:04 12/28/17 08:35 Microbiology 12/23/17 16:30 Blood Panel (PCR) - Final Blood No Organism Detected Laboratory Results 12/28/17 05:25 12/28/17 11:04 12/27/17 12/28/17 12/29/17 05:59 05:59 05:59 Intake Total 200 1025 Output Total 2100 1950 Balance -1900 -925 PT 16.0 SEC (12.0-15.0) H 12/28/17 14:00 INR 1.26 (0.83-1.16) H 12/28/17 14:00 General: Pleasant-appearing male appears in no acute distress comfortable lying in bed. Accompanied by his was at bedside. HEENT: Oropharynx is clear extremities are intact pupils equal round reactive to light Cardiovascular: Regular rate and rhythm no murmurs gallops or rubs Lungs: Clear to auscultation bilaterally Abdomen: Soft nontender nondistended bowel sounds are present Extremities: No cyanosis clubbing or edema Neuro: Moving all extremities. ICD10 Worksheet Patient Problems: Problems Problem Status Onset Bladder cancer Acute Dehydration Acute Hematuria Acute Metastatic lung cancer (metastasis from lung to other site) Acute Renal failure Acute Colon cancer Acute
--- NOTE | 2017-12-28 19:02 | HOSPPROG ---
Hospitalist Progress Note Assessment/Plan: This man who use to work at [employer] had 3 cancers with any year including lung cancer (currently on chemo treatment), urothelial cell (so far treated surgically) and colon cancer with partial colectomy. He enters the hospital at this time with generalized weakness is found to have a bacteremia with which will probably be an Enterococcus or streptococcal organism of uncertain source, but has a number of other concurrent acute complications of his illnesses. DIAGNOSES: * bacteremia with gram-positive cocci in chains suggest a strep Genus bacteria; uncertain source, ? Port or other skin lesion * Improving with antibiotics here with final ID pending * gross hematuria ongoing for 2+ weeks with urostomy in place p cystectomy, history of urothelial cell cancer and cystectomy * Thrombocytopenia may be contributing * CT urogram yesterday shows a number of filling defects in the right renal collecting system and ureter, potentially consistent with clots or masses; I reviewed with Urology service who recommend to treat the current infectious and bleeding processes, and they will eventually recommend either repeat CT or other investigation to clarify * post hemorrhagic anemia due to above * Worsened today, transfusion indicated * watery stools with crampy abdominal discomfort, a new complaint by the patient today but has been present for 2-3 weeks * doubtful significance of multiple organisms grown in urine culture during this admission * acute kidney injury initially resolved with hydration and antibiotics, but a bit worse today possibly due to bleeding and loose stools * suspected recent seizure, on new therapy * stage III non-small cell lung cancer status post chemo radiotherapy and durvalumab * colon cancer status post resection with colostomy * deconditioning and gait instability with high fall risk I reviewed in detail today with Dr. Myles Sloan, and with Nichole Russell of urology Seen by me on hospitals rounds today as well as multidisciplinary Cancer Care rounds PLANS: * Transfusion of platelets to try and get the hematuria to stop * Transfusion red blood cells for symptomatic anemia hemoglobin 7 * Ongoing close monitoring of cell counts * Continue current antibiotic pending final identification of the organism in blood cultures * Continue hydration, follow renal function closely * Check stool for C diff, if negative will use antidiarrheals, if positive treat with Vanco * PT and OT, fall risk precautions * DVT prophylaxis no medicine being used due to his bleeding and anemia with low platelets * Continue current therapy for seizure SUBJECTIVE: Says he overall feels better today but does admit to a little bit of orthostatic lightheadedness Also tells me today that for 2-3 weeks he has been having watery stools associated with some crampy abdominal discomfort but no fevers or bleeding Continues to have significant gross hematuria today OBJECTIVE Vitals reviewed: Overall stable without fever at this time, but did have some mild tachycardia 112 up in chair at 1 point Exam: alert oriented skin warm dry color ok resps not labored lungs clear BSs heart regular abd soft nondistended nontender, bowel sounds present; at this point is having gross hematuria from his urostomy which he says has been present now for 2 weeks limbs warm, no edema iv site ok Laboratory data: Hemoglobin is decreased to 7, and platelets 29 White count good Creatinine a bit worse at 1.6 Microbiology: Blood cultures still with unidentified green positive cocci in chains Imaging: CT scan with urogram of abdomen pelvis done yesterday, I reviewed images and reviewed with Nichole Russell of Urology. There are multiple filling defects in the right renal collecting system and the upper half of the ureter, suggestive of either thrombi or masses Objective: Vital Signs Temp Pulse Resp BP Pulse Ox 36.6 C 112 H 18 98/58 L 98 12/28/17 16:00 12/28/17 16:00 12/28/17 16:00 12/28/17 16:00 12/28/17 16:00 Microbiology 12/23/17 16:30 Blood Panel (PCR) - Final Blood No Organism Detected Laboratory Results 12/28/17 05:25 12/28/17 11:04 12/27/17 12/28/17 12/29/17 06:59 06:59 06:59 Intake Total 200 1025 750 Output Total 2100 1950 900 Balance -1900 -925 -150 PT 16.0 SEC (12.0-15.0) H 12/28/17 14:00 INR 1.26 (0.83-1.16) H 12/28/17 14:00 - Time Spent With Patient Time Spent with Patient: greater than 35 minutes Time Spent with Patient: Greater than 35 minutes spent on this patients care, greater than 50% of time spent counseling, educating, and coordinating care regarding the above mentioned plan. ICD10 Worksheet Patient Problems: Problems Problem Status Onset Bladder cancer Acute Dehydration Acute Hematuria Acute Metastatic lung cancer (metastasis from lung to other site) Acute Renal failure Acute Colon cancer Acute
[2017-12-28] MEDS: oxyCODONE IR 5 MG TAB PO PRN (19:43)
[2017-12-28] MEDS: PATCH REMOVAL 1 EA PATCH TD SCH (20:29)
[2017-12-29] MEDS: oxyCODONE IR 5 MG TAB PO PRN ×3 (04:30→21:33)
[2017-12-29 04:46] LABS: PLATELET COUNT 32 10^3/uL (150-400)
[2017-12-29] MEDS: levETIRAcetam 250 MG TAB PO SCH ×2 (12:12→21:19)
[2017-12-29] MEDS: VANCOMYCIN 125 MG/2.5 ML UDL PO SCH ×4 (12:12→21:19)
[2017-12-29] MEDS: FOLIC ACID 1 MG TAB PO SCH (12:12)
[2017-12-29] MEDS: ATORVASTATIN CALCIUM 40 MG TAB PO SCH (12:12)
[2017-12-29] MEDS: DEXAMETHASONE 4 MG TAB PO SCH (12:13)
[2017-12-29] MEDS: METOPROLOL SUCCINATE XR 100 MG TAB PO SCH (12:20)
[2017-12-29] MEDS: LIDOCAINE 4%/MENTHOL 1% PATCH TD SCH (12:23)
--- NOTE | 2017-12-29 14:36 | HOSPPROG ---
Hospitalist Progress Note Assessment/Plan: This man who use to work at [employer] had 3 cancers with any year including lung cancer (currently on chemo treatment), urothelial cell (so far treated surgically) and colon cancer with partial colectomy. Admitted with generalized weakness is found to have a bacteremia with which will probably be an Enterococcus or streptococcal organism of uncertain source, but has a number of other concurrent acute complications of his illnesses. DIAGNOSES: * bacteremia with gram-positive cocci in chains suggest a strep Genus bacteria; uncertain source, ? Port or other skin lesion * Improving with antibiotics here with final ID pending * gross hematuria ongoing for 3+ weeks with urostomy in place p cystectomy, history of urothelial cell cancer and cystectomy * Thrombocytopenia may be contributing * CT urogram yesterday shows a number of filling defects in the right renal collecting system and ureter, potentially consistent with clots or masses; I reviewed with Urology service who recommend to treat the current infectious and bleeding processes, and they will eventually recommend either repeat CT or other investigation to clarify * post hemorrhagic anemia due to above * C-Diff * acute kidney injury * suspected recent seizure, on new therapy * stage III non-small cell lung cancer status post chemo radiotherapy and durvalumab * colon cancer status post resection with colostomy * deconditioning and gait instability with high fall risk PLAN: * Transfuse PRBC and Platelets * Repeat labs in a.m. * Continue Rocephin pending final identification of the organism in blood cultures. ID is following * cont Vancomycin * PT and OT, fall risk precautions * DVT prophylaxis: SCD's Subjective: still feels fatigued but overall better. no cp or sob. still with hematuria Objective: Vital Signs Temp Pulse Resp BP Pulse Ox 35.8 C L 108 H 18 100/58 L 96 12/29/17 11:08 12/29/17 13:39 12/29/17 12:19 12/29/17 13:39 12/29/17 13:39 Microbiology 12/23/17 16:30 Blood Panel (PCR) - Final Blood No Organism Detected 12/23/17 16:30 Blood Culture - Final Blood Anaerobic Gram Positive Cocci 12/28/17 21:00 Gastrointestinal Tract Panel (PCR) - Final Stool Clostridium Difficile Detected Laboratory Results 12/29/17 04:23 12/28/17 11:04 12/28/17 12/29/17 12/30/17 05:59 05:59 05:59 Intake Total 1025 1400 550 Output Total 3267 6005 425 Balance -925 -318 125 PT 16.0 SEC (12.0-15.0) H 12/28/17 14:00 INR 1.26 (0.83-1.16) H 12/28/17 14:00 - Physical Exam Constitutional: chronically ill appearing Eyes: PERRL, EOMI Ears, Nose, Mouth, Throat: moist mucous membranes, hearing normal Cardiovascular: regular rate and rhythym, No edema Respiratory: no respiratory distress, no rales or rhonchi Gastrointestinal: normoactive bowel sounds, soft, non-tender abdomen Skin: warm Neurologic: AAOx3 Psychiatric: interacting appropriately, not anxious, not encephalopathic Lymph, Heme, Immunologic: No petechiae ICD10 Worksheet Patient Problems: Problems Problem Status Onset Bladder cancer Acute Dehydration Acute Hematuria Acute Metastatic lung cancer (metastasis from lung to other site) Acute Renal failure Acute Colon cancer Acute
--- NOTE | 2017-12-29 14:47 | SOAPPROG ---
SOAP Progress Note Assessment/Plan: Assessment: This is a very pleasant 72-year-old male with history of metastatic non-small cell lung cancer who was admitted for significant hematuria. 1. Hematuria: He has been followed by Urology. His platelets went from 29 to 32 over 24 hr after transfusion. I have recommended her transfusing platelets again today. 2. Thrombocytopenia: In viewing his history he received carboplatin and pemetrexed in late October of 2017. His platelets were normal pre chemotherapy immediately after they went below 100 of slowly decreased. Although typically we see count recovery by this time, I believe that some of this is chemotherapy related alongside consumptive from his ongoing hematuria. I have recommended platelet transfusion today. 3. Anemia: I have recommended transfusion with PRBCs today. 4. Bacteremia: He has been followed by infectious disease. The switch antibiotic to ceftriaxone today. 5. C diff colitis: Is currently on oral vancomycin. 12/29/17 14:47 Subjective: He states he feels well this morning the best he has felt in quite some time. He continues to have ongoing hematuria. He also has abdominal cramping is on vancomycin for C diff infection. Objective: Vital Signs Temp Pulse Resp BP Pulse Ox 35.8 C L 108 H 18 100/58 L 96 12/29/17 11:08 12/29/17 13:39 12/29/17 12:19 12/29/17 13:39 12/29/17 13:39 Microbiology 12/23/17 16:30 Blood Panel (PCR) - Final Blood No Organism Detected 12/23/17 16:30 Blood Culture - Final Blood Anaerobic Gram Positive Cocci 12/28/17 21:00 Gastrointestinal Tract Panel (PCR) - Final Stool Clostridium Difficile Detected Laboratory Results 12/29/17 04:23 12/28/17 11:04 12/28/17 12/29/17 12/30/17 05:59 05:59 05:59 Intake Total 1025 1400 550 Output Total 1950 1675 425 Balance -925 -275 125 PT 16.0 SEC (12.0-15.0) H 12/28/17 14:00 INR 1.26 (0.83-1.16) H 12/28/17 14:00 General: Pleasant-appearing male appears in no acute distress HEENT: Oropharynx is clear, extraocular movements are intact Cardiovascular: Regular rhythm Pulmonary: Clear to auscultation Abdomen: Slight tenderness throughout no rebound no guarding bowel sounds are present Extremities: No cyanosis clubbing or edema ICD10 Worksheet Patient Problems: Problems Problem Status Onset Bladder cancer Acute Dehydration Acute Hematuria Acute Metastatic lung cancer (metastasis from lung to other site) Acute Renal failure Acute Colon cancer Acute
--- NOTE | 2017-12-29 17:09 | WOCRNPDOC ---
WOCRN Advanced Assessment Note - Skin Integrity Problem, Advanced Assess Perianal Denuded Dressing Type: Open to Air Wound Bed Constitution: Red/Hydro - Non Granular Tissue, Subcutaneous Fat Skin Integrity Problem Comment: Multiple deep full thickness wounds around anus from repeated incontinence and wiping (severe Incontinence Associated Dermatitis ). The wounds also extend onto patient's scrotum and perineum. Cleaned the area with bath wipes and used 3M Cavilon Advanced Skin Protectant to protect open areas from further incontinence damage. Patient does not report feeling much improvement since previous application on Wednesday. Wound care will round again this week; perhaps tomorrow for reapplication of 3M Advanced Barrier. flame gouger Sadie in room for care as well. All questions answered.
--- NOTE | 2017-12-29 17:30 | PCMIDPN ---
Assessment/Plan: 72 year old male with metastatic non small cell lung cancer and h/o bladder CA s /p Radical cystectomy with ileal conduit and L nephrectomy who presented w weakness and hematuria, found to have ARF and GPC chains bacteremia. Possible lesion in remaining R kidney - clot vs mass. # Anaerobic GPC chains bacteremia, unclear source as UCx from 12/22 does not correspond to blood cx. Difficult ID in lab makes typical strep viridans or enterococcus unlikely. Exclusively grew out of anaerobic bottle, had definite cocci appearance (not bacillus). --sending to [place], so will not have results for 5-7 dats --dc ceftriaxone --start daptomycin 6mg/kg to assure coverage of the anaerobic GPC. Risk of renal toxicity w vancomycin too great # Cdiff: on PO vancomycin # ARF: Cr stable, CrCl 50 # H/o ESBL E coli: contact precautions # thrombocytopenia: marked hematuria and HCT trending down, defer to oncology about whether needs platelet transfusion. Stoma reportedly appears normal Microbiology 12/27/17 blood cx (2) pending 12/23/17 16:30 Blood Cx 2/2 GPC chains (prelim viridans group) 12/22/17 11:00 Urine Cx: Corynebacterium Urealyticum Staphylococcus Sp Coag Neg Three [place] Types meds Abx #6 ceftriaxone 2gm IV daily, #2 s/p vancomycin IV Subjective: still with diarrhea and abdominal cramping, no improvement dramatic hematuria still in urostomy bag Objective: Vital Signs Temp Pulse Resp BP Pulse Ox 37.1 C 95 18 90/56 L 93 12/29/17 16:45 12/29/17 17:06 12/29/17 16:45 12/29/17 17:06 12/29/17 16:45 Microbiology 12/23/17 16:30 Blood Panel (PCR) - Final Blood No Organism Detected 12/23/17 16:30 Blood Culture - Final Blood Anaerobic Gram Positive Cocci 12/28/17 21:00 Gastrointestinal Tract Panel (PCR) - Final Stool Clostridium Difficile Detected Laboratory Results 12/29/17 04:23 12/28/17 11:04 12/28/17 12/29/17 12/30/17 05:59 05:59 05:59 Intake Total 1025 1400 550 Output Total 1950 1675 425 Balance -925 -275 125 - Physical Exam General Appearance: alert, no apparent distress, obese EENT: pale conjunctiva, No thrush Respiratory: lungs clear, No accessory muscle use Cardiac/Chest: regular rate, rhythm, other (R Mediport chest c/d/i) Extremities: pedal edema Abdomen: non-tender, soft, other (ileostomy condiut - hematuria) Skin: pallor, No diaphoresis, No rash Neuro/Psych: alert, normal mood/affect, oriented x 3 - Time Spent With Patient Time Spent with Patient: greater than 35 minutes (reviewed rx 1) cdiff and treatment 2) lack of ability to ID GPC and adjustment of abx 3) past isolate of ESBL E coli w patient and his at bedside) Time Spent with Patient: Greater than 35 minutes spent on this patients care, greater than 50% of time spent counseling, educating, and coordinating care regarding the above mentioned plan. ICD10 Worksheet Patient Problems: Problems Problem Status Onset Bladder cancer Acute Dehydration Acute Hematuria Acute Metastatic lung cancer (metastasis from lung to other site) Acute Renal failure Acute Colon cancer Acute
[2017-12-29 18:22] LABS: CREATINE KINASE 100 IU/L (0-224)
[2017-12-29] MEDS: PATCH REMOVAL 1 EA PATCH TD SCH (21:26)
[2017-12-29] MEDS: DAPTOMYCIN IV SCH (21:36)
[2017-12-29] MEDS: NS IV SCH (21:36)
[2017-12-30] MEDS: VANCOMYCIN 125 MG/2.5 ML UDL PO SCH ×4 (05:28→20:05)
[2017-12-30] MEDS: oxyCODONE IR 5 MG TAB PO PRN ×2 (05:28→18:20)
[2017-12-30 05:45] LABS: PLATELET COUNT 56 10^3/uL (150-400)
[2017-12-30] MEDS: levETIRAcetam 250 MG TAB PO SCH ×2 (08:14→20:05)
[2017-12-30] MEDS: FOLIC ACID 1 MG TAB PO SCH (08:16)
[2017-12-30] MEDS: METOPROLOL SUCCINATE XR 100 MG TAB PO SCH (08:16)
[2017-12-30] MEDS: DEXAMETHASONE 4 MG TAB PO SCH (08:16)
[2017-12-30] MEDS ORDERED: METOPROLOL SUCCINATE XR 100 MG TAB PO SCH (10:12)
[2017-12-30] MEDS: LIDOCAINE 4%/MENTHOL 1% PATCH TD SCH (10:21)
[2017-12-30] MEDS: DAPTOMYCIN IV SCH (10:24)
[2017-12-30] MEDS: NS IV SCH (10:24)
--- NOTE | 2017-12-30 12:20 | HOSPPROG ---
Hospitalist Progress Note Assessment/Plan: This man who use to work at [employer] had 3 cancers with any year including lung cancer (currently on chemo treatment), urothelial cell (so far treated surgically) and colon cancer with partial colectomy. Admitted with generalized weakness is found to have a bacteremia with which will probably be an Enterococcus or streptococcal organism of uncertain source, but has a number of other concurrent acute complications of his illnesses. DIAGNOSES: * bacteremia with gram-positive cocci in chains suggest a strep Genus bacteria; uncertain source, ? Port or other skin lesion * on Dapto. Previously on Vanco and Rocephin * ID is following * Most recent cultures with NGTF * gross hematuria ongoing for 3+ weeks with urostomy in place p cystectomy, history of urothelial cell cancer and cystectomy * CT urogram shows a number of filling defects in the right renal collecting system and ureter, potentially consistent with clots or masses; Urology recommends to treat the current infectious and bleeding processes, and they will eventually recommend either repeat CT or other investigation to clarify. They are following * post hemorrhagic anemia due to above *thrombocytopenia secondary to consumption and likely chemotherapy * C-Diff -on Oral Vanco * acute kidney injury on chronic renal failure -hx of CKD stage III with a baseline Cr of 1.1 - 1.4. 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 Hold off on transfusion today. -Hgb with some improvement. Will hold off on transfusion today and consider tomorrow. He is hemodynamically stable -cont with Dapto per ID -cont with Decadron, no need to increase dose -cont Oral Vanco. Diarrhea and abd cramping is improving -Decrease Metoprolol XL -I will discuss hematuria with Urology today -SCD for DVT proph Subjective: still with Hematuria. BP ok. Cr. ok. Diarrhea is improving Objective: Vital Signs Temp Pulse Resp BP Pulse Ox 36.2 C 79 15 106/56 L 95 12/30/17 12:00 12/30/17 12:00 12/30/17 12:00 12/30/17 12:00 12/30/17 12:00 Microbiology 12/23/17 16:30 Blood Panel (PCR) - Final Blood No Organism Detected 12/23/17 16:30 Blood Culture - Final Blood Anaerobic Gram Positive Cocci 12/28/17 21:00 Gastrointestinal Tract Panel (PCR) - Final Stool Clostridium Difficile Detected Laboratory Results 12/30/17 05:35 12/30/17 05:35 12/29/17 12/30/17 12/31/17 05:59 05:59 05:59 Intake Total 1400 1020 Output Total 1675 1450 50 Balance -275 -430 -50 PT 16.0 SEC (12.0-15.0) H 12/28/17 14:00 INR 1.26 (0.83-1.16) H 12/28/17 14:00 - Physical Exam Constitutional: no apparent distress Eyes: PERRL Ears, Nose, Mouth, Throat: moist mucous membranes, hearing normal Cardiovascular: regular rate and rhythym, No edema Respiratory: no respiratory distress, no rales or rhonchi, clear to auscultation Gastrointestinal: normoactive bowel sounds, soft, non-tender abdomen Skin: warm Musculoskeletal: generalized weakness Neurologic: AAOx3 Psychiatric: interacting appropriately, not anxious, not encephalopathic Lymph, Heme, Immunologic: No petechiae ICD10 Worksheet Patient Problems: Problems Problem Status Onset Bladder cancer Acute Dehydration Acute Hematuria Acute Metastatic lung cancer (metastasis from lung to other site) Acute Renal failure Acute Colon cancer Acute
--- NOTE | 2017-12-30 13:57 | SOAPPROG ---
SOAP Progress Note Assessment/Plan: Assessment: Hematuria-- question clot vs mass in right kidney, suspect mass Plan: Dr Jurado and I have reviewed images and recommend repeat imaging, consideration of perc and biopsy or surgical exploration. Discussed with hospitalist as well. Consider family meeting if helpful. Palliative care consult scheduled for later. 12/30/17 13:55 Objective: Vital Signs Temp Pulse Resp BP Pulse Ox 36.2 C 79 15 106/56 L 95 12/30/17 12:00 12/30/17 12:00 12/30/17 12:00 12/30/17 12:00 12/30/17 12:00 Microbiology 12/23/17 16:30 Blood Panel (PCR) - Final Blood No Organism Detected 12/23/17 16:30 Blood Culture - Final Blood Anaerobic Gram Positive Cocci Laboratory Results 12/30/17 05:35 12/30/17 05:35 12/29/17 12/30/17 12/31/17 05:59 05:59 05:59 Intake Total 1400 1020 Output Total 1675 1450 300 Balance -275 -430 -300 PT 16.0 SEC (12.0-15.0) H 12/28/17 14:00 INR 1.26 (0.83-1.16) H 12/28/17 14:00 Physical Exam - Physical Exam General Appearance: alert, no apparent distress Skin: pallor ICD10 Worksheet Patient Problems: Problems Problem Status Onset Bladder cancer Acute Dehydration Acute Hematuria Acute Metastatic lung cancer (metastasis from lung to other site) Acute Renal failure Acute Colon cancer Acute
--- NOTE | 2017-12-30 14:31 | WOCRNPDOC ---
WOCRN Advanced Assessment Note - Skin Integrity Problem, Advanced Assess Right Ischial Tuberosity Pressure Injury Dressing Type: Other Other Dressing Type: 3M cavilon skin protectant Closure Description: Not Approximated Integumentary Issue Intervention: Visualized Under Dressing Sulema Wound Tissue: Erythema, Non-blanching Wound Bed Color: Red, Yellow Wound Bed Constitution: Adhered Slough Site Measurement - Head-to-Toe Length X Width X Depth (cm): 1x1.5x0.3 Pressure Injury Stage: Unstageable Skin Integrity Problem Comment: Unable to visualize wound bed due to slough. Wound cleaned with normal saline and patted dry with gauze. Applied skin protectant over wound due to proximity to incontinence related dermatitis. Wound care will round again next week. Perianal Denuded Dressing Type: Other Other Dressing Type: 3M cavilon skin protectant wand Dressing Description: Soiled Closure Description: Not Approximated Exudate Amount: Minimal Exudate Color: Reddish/Yellow Exudate Characteristic(s): Serosanguinous Integumentary Issue Intervention: Dressing Applied (skin protectant wand) Sulema Wound Tissue: Erythema, Raw, Swollen, Painful/Tender Sulema Wound Swelling: Mild Wound Bed Color: [place], Red, Yellow, White Wound Bed Constitution: Red/[place] - Non Granular Tissue (60%), Adhered Slough (40 %) Site Measurement - Head-to-Toe Length X Width X Depth (cm): entire area approximately [id number] Skin Integrity Problem Comment: Patient has severe incontinence associated dermatitis from stool, which presents with multiple full thickness openings to perianal area, and extend to the patient's scrotum. Wounds are quite painful to the patient. Wound appears to have worsened since assessment on 12/27/17. RN Tamra and PERSONAL LINES APPRAISER Ally in room for care. Wound care will follow.
--- NOTE | 2017-12-30 15:02 | PCMIDPN ---
Assessment/Plan: 72 year old male with metastatic non small cell lung cancer and h/o bladder CA s /p Radical cystectomy with ileal conduit and L nephrectomy who presented w weakness and hematuria, found to have ARF and GPC chains bacteremia. # Anaerobic GPC chains bacteremia, unclear source as UCx from 12/22 does not correspond to blood cx. Difficult ID in lab makes typical strep viridans or enterococcus unlikely. Exclusively grew out of anaerobic bottle, had definite cocci appearance (not bacillus). --sending to [place], so will not have results for 5-7 days --continue daptomycin, clinically patient is better today but unclear whether due to antibiotic change . # Cdiff, GI symptoms are improved today with less abdominal cramping and less frequency of diarrhea --continue on PO vancomycin # ARF: Cr improved today creatinine 1.3. Patient currently is under consideration of a lesion in his right kidney which is likely related to ongoing hematuria # H/o ESBL E coli: contact precautions # thrombocytopenia: better today, query whether low plts related to bacteremia Microbiology 12/27/17 blood cx (2) NGTD 12/23/17 16:30 Blood Cx 2/2 GPC chains (prelim viridans group) 12/22/17 11:00 Urine Cx: Corynebacterium Urealyticum Staphylococcus Sp Coag Neg [place] Types meds Abx #7 Daptomycin 525 mg IV daily, #2 Subjective: Patient is feeling better today, improved appetite, more energy, less abdominal pain. Objective: Vital Signs Temp Pulse Resp BP Pulse Ox 36.2 C 79 15 106/56 L 95 12/30/17 12:00 12/30/17 12:00 12/30/17 12:00 12/30/17 12:00 12/30/17 12:00 Microbiology 12/23/17 16:30 Blood Panel (PCR) - Final Blood No Organism Detected Laboratory Results 12/30/17 05:35 12/30/17 05:35 12/29/17 12/30/17 12/31/17 05:59 05:59 05:59 Intake Total 1400 1020 Output Total 1675 1450 300 Balance -275 -430 -300 - Physical Exam General Appearance: alert, no apparent distress, obese EENT: pale conjunctiva, other (Moist mucous membranes), No scleral icterus, No thrush Respiratory: other (Shallow inspiration, decreased breath sounds in the bases), No accessory muscle use Neck: supple Cardiac/Chest: regular rate, rhythm Abdomen: non-tender, soft, other (Urostomy right quadrant with red koolaid colored urine (more transparent today)) Skin: pallor, No rash Neuro/Psych: alert, normal mood/affect, oriented x 3 - Line/s Mediport Lines: No drainage, No erythema - Time Spent With Patient Time Spent with Patient: greater than 35 minutes Time Spent with Patient: Greater than 35 minutes spent on this patients care, greater than 50% of time spent counseling, educating, and coordinating care regarding the above mentioned plan. ICD10 Worksheet Patient Problems: Problems Problem Status Onset Bladder cancer Acute Dehydration Acute Hematuria Acute Metastatic lung cancer (metastasis from lung to other site) Acute Renal failure Acute Colon cancer Acute
[2017-12-30 16:49] LABS: PLATELET COUNT 57 10^3/uL (150-400)
[2017-12-30] MEDS: PATCH REMOVAL 1 EA PATCH TD SCH (20:07)
[2017-12-30] MEDS: LIDO/ZINC OX/CLOTRIMAZOLE (MAD) 116 GM CREAM TP SCH (20:08)
[2017-12-31] MEDS: oxyCODONE IR 5 MG TAB PO PRN ×3 (01:19→11:56)
[2017-12-31] MEDS: VANCOMYCIN 125 MG/2.5 ML UDL PO SCH ×4 (05:22→21:25)
[2017-12-31] MEDS: NS IV SCH (09:37)
[2017-12-31] MEDS: DAPTOMYCIN IV SCH (09:37)
[2017-12-31] MEDS: LIDO/ZINC OX/CLOTRIMAZOLE (MAD) 116 GM CREAM TP SCH ×2 (10:00→21:25)
[2017-12-31] MEDS: DEXAMETHASONE 4 MG TAB PO SCH (10:00)
[2017-12-31] MEDS: FOLIC ACID 1 MG TAB PO SCH (10:00)
[2017-12-31] MEDS: levETIRAcetam 250 MG TAB PO SCH ×2 (10:00→21:25)
[2017-12-31] MEDS: LIDOCAINE 4%/MENTHOL 1% PATCH TD SCH (10:01)
--- NOTE | 2017-12-31 10:16 | WOCRNPDOC ---
SKINNY Advanced Assessment Note - Skin Integrity Problem, Advanced Assess Perianal Denuded Dressing Type: Other (zinc oxide powder and no sting barrier spray crusting method) Other Dressing Type: zinc oxide powder and no sting barrier spray Dressing Description: Soiled Sulema Wound Tissue: Raw, Denuded, Painful/Tender Wound Bed Color: [place], Red, Yellow, White Wound Bed Constitution: Red/[place] - Non Granular Tissue (60%), Adhered Slough (40 %) Skin Integrity Problem Comment: Patient had had a BM and was being cleaned. Tamra RN in room and said wound looked unchanged or possibly slightly better. Discussed with patient, he said that it felt "maybe a little bit better although it is hard to say." It has been less than 24 hours since the orders were changed. Patient said it is definitely not any worse that it was before the orders were changed to the zinc oxide powder and no-sting barrier spray crusting method. Will continue to use the crusting technique throughout the weekend and reassess the beginning of next week. Dr. Julian also in room to assess.
--- NOTE | 2017-12-31 11:19 | PCMIDPN ---
Assessment/Plan: 72 year old male with metastatic non small cell lung cancer and h/o bladder CA s /p Radical cystectomy with ileal conduit and L nephrectomy : # Anaerobic GPC chains bacteremia, unclear source as UCx from 12/22 does not correspond to blood cx. Unable to ID GPC in our lab. Since abx change to daptomycin seems leukopenia resolved and thrombocytopenia getting better. Wonder if lesion in kidney could be abscess. --sending to [place], so will not have results for 5-7 days --continue daptomycin (avoiding vancomycin due to renal toxicity: single kidney underlying renal insufficiency) --continue to hold statin --check CK today # Cdiff, GI symptoms are improved today with less abdominal cramping and less frequency of diarrhea --continue on PO vancomycin # ARF: resolved, Cr 1.1 # H/o ESBL E coli: contact precautions # thrombocytopenia: continues to be a bit better Microbiology 12/27/17 blood cx (2) NGTD 12/23/17 16:30 Blood Cx 2/2 GPC chains (prelim viridans group) 12/22/17 11:00 Urine Cx: Corynebacterium Urealyticum Staphylococcus Sp Coag Neg Three [place] Types meds Abx #7 Daptomycin 525 mg IV daily, #3 Subjective: patient continue to feel stronger ambulating intermittently No complaints of myalgia or cough Objective: Vital Signs Temp Pulse Resp BP Pulse Ox 36.1 C 68 14 118/60 97 12/31/17 09:28 12/31/17 09:28 12/31/17 09:28 12/31/17 09:28 12/31/17 09:28 Microbiology 12/23/17 16:30 Blood Panel (PCR) - Final Blood No Organism Detected Laboratory Results 12/30/17 16:00 12/31/17 05:25 12/30/17 12/31/17 01/01/18 05:59 05:59 05:59 Intake Total 1020 100 Output Total 1450 700 150 Balance -430 -600 -150 - Physical Exam General Appearance: alert, no apparent distress EENT: No thrush Respiratory: lungs clear, No accessory muscle use Neck: normal inspection Cardiac/Chest: regular rate, rhythm Extremities: No pedal edema Abdomen: non-tender, soft, other (Urine in Bag associated with ileal conduit still quite blood-tinged) Male Genitalia: No scrotal edema Back: other (Skin breakdown along gluteal fold, see wound care nurse note) - Line/s Mediport Lines: No drainage, No erythema - Time Spent With Patient Time Spent with Patient: greater than 35 minutes Time Spent with Patient: Greater than 35 minutes spent on this patients care, greater than 50% of time spent counseling, educating, and coordinating care regarding the above mentioned plan. ICD10 Worksheet Patient Problems: Problems Problem Status Onset Bladder cancer Acute Dehydration Acute Hematuria Acute Metastatic lung cancer (metastasis from lung to other site) Acute Renal failure Acute Colon cancer Acute
--- NOTE | 2017-12-31 13:22 | SOAPPROG ---
SOAP Progress Note Assessment/Plan: Assessment: This is a very pleasant 72-year-old male with history of metastatic non-small cell lung cancer who was admitted for significant hematuria. 1. Hematuria: He previously had urothelial cancer back in 2017, and the concern currently is that he might have recurrence which would be the cause of his hematuria. The question today is whether invasive biopsy is reasonable given his underlying metastatic non-small cell lung cancer. I have explained to him in his that while it is important to obtain a diagnosis, his metastatic non-small cell lung cancer would make me slightly hesitant to investigate his hematuria more invasive we. 2. Thrombocytopenia and leukopenia: He received carboplatin and pemetrexed in late October of 2017, and although his counts should improve by now he was heavily pretreated with chemotherapy earlier. He was given platelet transfusions. His platelets appear stable currently. His leukopenia has also improved. 3. Anemia: No indication for transfusion today. 4. Metastatic non-small cell lung cancer: He initially was treated definitively with chemoradiation followed by [facility] but had disease recurrence and received carboplatin Alimta in October of 2017. He does have brain metastasis as well. I explained to him is that treatment for his lung cancer is palliative. We discussed the prognosis of metastatic non-small cell lung cancer. They voiced their understanding of this. They had time to ask questions. They voiced their understanding. 5. C diff colitis: Is currently on oral vancomycin. 12/31/17 13:32 Subjective: Continues to feel weak. He has intermittent hematuria but feels that that is slowing down. Otherwise no acute events overnight. Objective: Vital Signs Temp Pulse Resp BP Pulse Ox 36.5 C 103 H 15 112/60 97 12/31/17 11:49 12/31/17 11:49 12/31/17 11:49 12/31/17 11:49 12/31/17 11:49 Microbiology 12/23/17 16:30 Blood Panel (PCR) - Final Blood No Organism Detected Laboratory Results 12/30/17 16:00 12/31/17 05:25 12/30/17 12/31/17 01/01/18 05:59 05:59 05:59 Intake Total 1020 100 107 Output Total 1450 700 150 Balance -430 -600 -43 PT 16.0 SEC (12.0-15.0) H 12/28/17 14:00 INR 1.26 (0.83-1.16) H 12/28/17 14:00 General: Pleasant-appearing male appears in no acute distress HEENT: Oropharynx is clear extraocular movements are Pulmonary: Clear to auscultation Cardiovascular: Tachycardic regular rate and rhythm Abdomen: Soft nontender Extremities: No cyanosis clubbing or edema Psych: Appropriate affect ICD10 Worksheet Patient Problems: Problems Problem Status Onset Bladder cancer Acute Dehydration Acute Hematuria Acute Metastatic lung cancer (metastasis from lung to other site) Acute Renal failure Acute Colon cancer Acute
[2017-12-31 13:47] LABS: CREATINE KINASE 86 IU/L (0-224)
--- NOTE | 2017-12-31 14:44 | HOSPPROG ---
Hospitalist Progress Note Assessment/Plan: 72 YO M who used to work at [employer] had 3 cancers with any year including lung cancer (currently on chemo treatment), urothelial cell (so far treated surgically) and colon cancer with partial colectomy. Admitted with generalized weakness is found to have a bacteremia with which will probably be an Enterococcus or streptococcal organism of uncertain source, but has a number of other concurrent acute complications of his illnesses. DIAGNOSES: * bacteremia with gram-positive cocci in chains suggest a strep Genus bacteria; uncertain source, ? Port or other skin lesion * on Dapto. Previously on Vanco and Rocephin * ID is following * Most recent cultures with NGTF * gross hematuria ongoing for 3+ weeks with urostomy in place p cystectomy, history of urothelial cell cancer and cystectomy * CT urogram shows a number of filling defects in the right renal collecting system and ureter, potentially consistent with clots or masses; Urology recommends to treat the current infectious and bleeding processes, and they will eventually recommend either repeat CT or other investigation to clarify. They are following * I dont believe that this pt is a good surgical candidate * post hemorrhagic anemia due to above *thrombocytopenia secondary to consumption and likely chemotherapy * C-Diff -on Oral Vanco * acute kidney injury on chronic renal failure -hx of CKD stage III with a baseline Cr of 1.1 - 1.4. He is at baseline *HTN -BP has been soft. 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 no transfusion today -cont with Dapto per ID -cont with Decadron, no need to increase dose -cont Oral Vanco. Diarrhea and abd cramping is improving -We had a long meeting with the family. They are aware of prognosis. It is unclear, however, if they understand. They have requested consultation with Urology which will be set up. -Given his overall prognosis and comorbidities, I do not feel that he is a good surgical candidate. He likely would benefit from hospice, but neither he or his are ready for this discussion yet. -SCD for DVT proph Subjective: still with hematuria. bp is borderline. feels better. no cp or sob Objective: Vital Signs Temp Pulse Resp BP Pulse Ox 36.5 C 103 H 15 112/60 97 12/31/17 11:49 12/31/17 11:49 12/31/17 11:49 12/31/17 11:49 12/31/17 11:49 Microbiology 12/23/17 16:30 Blood Panel (PCR) - Final Blood No Organism Detected Laboratory Results 12/30/17 16:00 12/31/17 05:25 12/30/17 12/31/17 01/01/18 05:59 05:59 05:59 Intake Total 1020 100 107 Output Total 1450 700 150 Balance -430 -600 -43 PT 16.0 SEC (12.0-15.0) H 12/28/17 14:00 INR 1.26 (0.83-1.16) H 12/28/17 14:00 - Time Spent With Patient Time Spent with Patient: greater than 35 minutes Time Spent with Patient: Greater than 35 minutes spent on this patients care, greater than 50% of time spent counseling, educating, and coordinating care regarding the above mentioned plan. - Physical Exam Constitutional: no apparent distress Eyes: PERRL Ears, Nose, Mouth, Throat: moist mucous membranes, hearing normal Cardiovascular: regular rate and rhythym, No edema Respiratory: no respiratory distress, no rales or rhonchi, clear to auscultation Gastrointestinal: normoactive bowel sounds, soft, non-tender abdomen Skin: warm Neurologic: AAOx3 Psychiatric: interacting appropriately, not anxious, not encephalopathic Lymph, Heme, Immunologic: No petechiae ICD10 Worksheet Patient Problems: Problems Problem Status Onset Bladder cancer Acute Dehydration Acute Hematuria Acute Metastatic lung cancer (metastasis from lung to other site) Acute Renal failure Acute Colon cancer Acute
[2017-12-31] MEDS: PATCH REMOVAL 1 EA PATCH TD SCH (21:26)
--- NOTE | 2017-12-31 22:27 | SOAPPROG ---
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 Plan: Discussed palliative care here given metastatic small cell lung cancer - this could be a met to kidney - I did tell pt and frankly that he is not strong enough to undergo surgery at this time - will see pt on wednesday for further discussion, but he would need to be much stronger - we will see how he does. 12/31/17 22:24 Objective: Vital Signs Temp Pulse Resp BP Pulse Ox 36.5 C 93 16 112/62 94 12/31/17 20:56 12/31/17 20:56 12/31/17 20:56 12/31/17 20:56 12/31/17 20:56 Microbiology 12/23/17 16:30 Blood Panel (PCR) - Final Blood No Organism Detected Laboratory Results 12/30/17 16:00 12/31/17 05:25 12/30/17 12/31/17 01/01/18 05:59 05:59 05:59 Intake Total 1020 100 557 Output Total 1450 700 800 Balance -430 -600 -243 PT 16.0 SEC (12.0-15.0) H 12/28/17 14:00 INR 1.26 (0.83-1.16) H 12/28/17 14:00 Physical Exam - Physical Exam EENT: PERRL/EOMI Respiratory: chest non-tender Cardiac/Chest: normal peripheral pulses Abdomen: normal bowel sounds Back: Normal inspection Neuro/Psych: no motor/sensory deficits ICD10 Worksheet Patient Problems: Problems Problem Status Onset Bladder cancer Acute Dehydration Acute Hematuria Acute Metastatic lung cancer (metastasis from lung to other site) Acute Renal failure Acute Colon cancer Acute
[2018-01-01] MEDS: oxyCODONE IR 5 MG TAB PO PRN ×3 (05:09→20:53)
[2018-01-01] MEDS: VANCOMYCIN 125 MG/2.5 ML UDL PO SCH ×4 (05:09→20:54)
[2018-01-01 05:25] LABS: PLATELET COUNT 40 10^3/uL (150-400)
--- NOTE | 2018-01-01 08:55 | SOAPPROG ---
SOAP Progress Note Assessment/Plan: Assessment/Plan: 72yo gentleman w hx of metastatic NSCLC admitted for hematuria 1. Hematuria - previous urothelial cancer 2017; concern is that may have a recurrence in right renal pelvis causing hematuria vs clot vs other does have ongoing thrombocytopenia agree w urology holding off on invasive bx given underlying metastatic NSCLC 2. Thrombocytopenia and leukopenia - carbo and pemetrexed last in 10/2017 platelets worse today and certainly not helping the thrombocytopenia current infections seem to be under control Bld Cx NGTD from 12/27 lower platelets from DIC vs medication vs chemo induced myelosuppression would keep plts >50k given ongoing hematuria and anemia 3. Anemia - monitor for transfusion 4. stage IV NSCLC - initial chemoXRT follwed by durvalumab and on recurrence received carbo/pem 10/2017 Brain mets as well poor prognosis 5. C Diff colitis - s/p oral vanc 01/01/18 08:52 01/01/18 08:55 Subjective: No acute events remains weak Objective: Vital Signs Temp Pulse Resp BP Pulse Ox 36.2 C 85 13 115/59 L 97 01/01/18 07:28 01/01/18 07:28 01/01/18 07:28 01/01/18 07:28 01/01/18 07:28 Microbiology 12/23/17 16:30 Blood Panel (PCR) - Final Blood No Organism Detected Laboratory Results 01/01/18 05:00 01/01/18 05:00 12/31/17 01/01/18 01/02/18 05:59 05:59 05:59 Intake Total 100 1107 Output Total 700 1251 Balance -600 -144 PT 16.0 SEC (12.0-15.0) H 12/28/17 14:00 INR 1.26 (0.83-1.16) H 12/28/17 14:00 Gen - NAD, chronically ill appearing HEENT - anicteric CV - RRR Chest - clear anteriorly Abd - ileostomy intact w dark brown urine Ext - no sig edema Neuro - non focal ICD10 Worksheet Patient Problems: Problems Problem Status Onset Bladder cancer Acute Dehydration Acute Hematuria Acute Metastatic lung cancer (metastasis from lung to other site) Acute Renal failure Acute Colon cancer Acute
--- NOTE | 2018-01-01 09:35 | ASMTCMCOM ---
CM Note CM Note Notes: Patient plan of care reviewed daily in rounds. Patient continues to have profuse hematuria. Too unstable to undergo invasive surgery to determine if cancer has spread to kidney. Undergoing multiple transfusions for decreased blood and platelet counts. Seen this am by oncology. Poor prognosis noted. Patient had been seen by palliative care and declined but may warrant further visits to explore options. Plan: Was intended for SNF rehab. Plan TBD. Date Signed: 01/01/2018 09:33 AM Electronically Signed By:Charlee Li RN
[2018-01-01] MEDS: FOLIC ACID 1 MG TAB PO SCH (09:52)
[2018-01-01] MEDS: levETIRAcetam 250 MG TAB PO SCH ×2 (09:52→20:54)
[2018-01-01] MEDS: DEXAMETHASONE 4 MG TAB PO SCH (09:52)
[2018-01-01] MEDS: LIDO/ZINC OX/CLOTRIMAZOLE (MAD) 116 GM CREAM TP SCH ×2 (09:53→20:54)
[2018-01-01] MEDS: LIDOCAINE 4%/MENTHOL 1% PATCH TD SCH (09:53)
[2018-01-01] MEDS: DAPTOMYCIN IV SCH (09:54)
[2018-01-01] MEDS: NS IV SCH (09:54)
[2018-01-01 10:18] LABS: PLATELET COUNT 40 10^3/uL (150-400)
--- NOTE | 2018-01-01 10:29 | SOAPPROG ---
SOAP Progress Note Assessment/Plan: Assessment: Bladder cancer Acute SP cystoprostatectomy Hematuria Acute CAT urogram suggests upper tract path, agree with team of physicians care plan Plan: recommended hospice with team of physicians 01/01/18 10:28 Subjective: not feeling robust Objective: Vital Signs Temp Pulse Resp BP Pulse Ox 36.2 C 85 13 115/59 L 97 01/01/18 07:28 01/01/18 07:28 01/01/18 07:28 01/01/18 07:28 01/01/18 07:28 Microbiology 12/23/17 16:30 Blood Panel (PCR) - Final Blood No Organism Detected Laboratory Results 01/01/18 09:50 01/01/18 05:00 12/31/17 01/01/18 01/02/18 05:59 05:59 05:59 Intake Total 100 1107 Output Total 700 1251 Balance -600 -144 PT 16.0 SEC (12.0-15.0) H 12/28/17 14:00 INR 1.26 (0.83-1.16) H 12/28/17 14:00 Physical Exam - Physical Exam General Appearance: other (passing visit) ICD10 Worksheet Patient Problems: Problems Problem Status Onset Bladder cancer Acute Dehydration Acute Hematuria Acute Metastatic lung cancer (metastasis from lung to other site) Acute Renal failure Acute Colon cancer Acute - ICD10 Problem Qualifiers (1) Hematuria (2) Bladder cancer
[2018-01-01 10:33] LABS: INR 1.18 (0.83-1.16); PROTIME(PATIENT) 15.2 SEC (12.0-15.0)
--- NOTE | 2018-01-01 11:59 | HOSPPROG ---
Hospitalist Progress Note Assessment/Plan: 72 YO M who used to work at [employer] had 3 cancers with any year including lung cancer (currently on chemo treatment), urothelial cell (so far treated surgically) and colon cancer with partial colectomy. Admitted with generalized weakness is found to have a bacteremia with which will probably be an Enterococcus or streptococcal organism of uncertain source, but has a number of other concurrent acute complications of his illnesses. Today we discussed his prognosis and I informed him that the Oncology team believed that he had up to 6 months to live with his current treatment regimen. He reported that he was unaware of this (although there have been discussion about this with him) and became emotional. His goals are to get well enough so that he can go home with [facility], live a normal life, and avoid the hospital for some time. We discussed that he will need ongoing transfusions given the persistent hematuria and that he is not a good surgical candidate. We discussed that even if he goes home, he will be in and out of the hospital. He would benefit from hospice and he likely will be getting closer to making this decision after he has time to process todays news. DIAGNOSES: * bacteremia with gram-positive cocci in chains suggest a strep Genus bacteria; uncertain source, ? Port or other skin lesion * on Dapto. Previously on Vanco and Rocephin * ID is following * Most recent cultures with NGTF * gross hematuria ongoing for 3+ weeks with urostomy in place p cystectomy, history of urothelial cell cancer and cystectomy * CT urogram shows a number of filling defects in the right renal collecting system and ureter, potentially consistent with clots or masses; Urology recommends to treat the current infectious and bleeding processes, and they will eventually recommend either repeat CT or other investigation to clarify. They are following * I dont believe that this pt is a good surgical candidate * post hemorrhagic anemia due to above *thrombocytopenia secondary to consumption and likely chemotherapy * C-Diff -on Oral Vanco * acute kidney injury on chronic renal failure -hx of CKD stage III with a baseline Cr of 1.1 - 1.4. He is at baseline *HTN -BP has been soft. 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 Diarrhea and abd cramping is improving -SCD for DVT proph Objective: Vital Signs Temp Pulse Resp BP Pulse Ox 36.2 C 116 H 18 116/72 96 01/01/18 11:11 01/01/18 11:11 01/01/18 11:11 01/01/18 11:11 01/01/18 11:11 Microbiology 12/23/17 16:30 Blood Panel (PCR) - Final Blood No Organism Detected Laboratory Results 01/01/18 09:50 01/01/18 05:00 12/31/17 01/01/18 01/02/18 05:59 05:59 05:59 Intake Total 100 1107 Output Total 700 1251 Balance -600 -144 PT 15.2 SEC (12.0-15.0) H 01/01/18 09:50 INR 1.18 (0.83-1.16) H 01/01/18 09:50 - Time Spent With Patient Time Spent with Patient: greater than 35 minutes Time Spent with Patient: Greater than 35 minutes spent on this patients care, greater than 50% of time spent counseling, educating, and coordinating care regarding the above mentioned plan. - Physical Exam Constitutional: no apparent distress, chronically ill appearing Eyes: PERRL Ears, Nose, Mouth, Throat: moist mucous membranes, hearing normal Cardiovascular: regular rate and rhythym Respiratory: no respiratory distress Gastrointestinal: normoactive bowel sounds, soft, non-tender abdomen Skin: warm Neurologic: AAOx3 Psychiatric: interacting appropriately, not anxious, not encephalopathic Lymph, Heme, Immunologic: No petechiae ICD10 Worksheet Patient Problems: Problems Problem Status Onset Bladder cancer Acute Dehydration Acute Hematuria Acute Metastatic lung cancer (metastasis from lung to other site) Acute Renal failure Acute Colon cancer Acute
--- NOTE | 2018-01-01 15:29 | PCMIDPN ---
Assessment/Plan: 72 year old male with metastatic non small cell lung cancer and h/o bladder CA s /p Radical cystectomy with ileal conduit and L nephrectomy : # Anaerobic GPC chains bacteremia, unclear source as UCx from 12/22 does not correspond to blood cx. Unable to ID GPC in our lab. --awaiting results of ID of anaerobic GPC in chains --continue daptomycin (avoiding vancomycin due to renal toxicity: single kidney underlying renal insufficiency) --continue to hold statin --CK was normal yesterday --stop date of antibiotics is 01/10/2018. Reviewed with patient and family that antibiotics can be continued while at SNF or at home depending on discharge timing. # Cdiff, stable to gradually improving --continue on PO vancomycin # ARF: resolved, Cr 1.1 # H/o ESBL E coli: contact precautions # thrombocytopenia: continues to be a bit better Microbiology 12/27/17 blood cx (2) NGTD 12/23/17 16:30 Blood Cx 2/2 GPC chains (prelim viridans group) 12/22/17 11:00 Urine Cx: Corynebacterium Urealyticum; Staphylococcus Sp Coag Neg; Three [place] Types meds Abx #8 Daptomycin 525 mg IV daily, #4 Subjective: Patient still with frequent loose bowel movements, no abdominal pain, feels about the same as yesterday, wanting to walk. no muscle pain no cough Objective: Vital Signs Temp Pulse Resp BP Pulse Ox 36.2 C 116 H 18 116/72 96 01/01/18 11:11 01/01/18 11:11 01/01/18 11:11 01/01/18 11:11 01/01/18 11:11 Microbiology 12/23/17 16:30 Blood Panel (PCR) - Final Blood No Organism Detected Laboratory Results 01/01/18 09:50 01/01/18 05:00 12/31/17 01/01/18 01/02/18 05:59 05:59 05:59 Intake Total 100 1107 Output Total 700 1251 Balance -600 -144 - Physical Exam General Appearance: alert, no apparent distress, non-toxic EENT: pale conjunctiva, No scleral icterus, No thrush Respiratory: lungs clear, No accessory muscle use Extremities: pedal edema Abdomen: non-tender, soft, other (Ileal conduit: Urine in the bag less intensely red today) Skin: No rash Neuro/Psych: alert, normal mood/affect, oriented x 3 - Line/s Mediport Lines: No drainage, No erythema - Time Spent With Patient Time Spent with Patient: greater than 35 minutes Time Spent with Patient: Greater than 35 minutes spent on this patients care, greater than 50% of time spent counseling, educating, and coordinating care regarding the above mentioned plan. ICD10 Worksheet Patient Problems: Problems Problem Status Onset Bladder cancer Acute Dehydration Acute Hematuria Acute Metastatic lung cancer (metastasis from lung to other site) Acute Renal failure Acute Colon cancer Acute
[2018-01-01] MEDS: PATCH REMOVAL 1 EA PATCH TD SCH (20:55)
[2018-01-02] MEDS: oxyCODONE IR 5 MG TAB PO PRN ×3 (04:35→21:38)
[2018-01-02 04:55] LABS: PLATELET COUNT 51 10^3/uL (150-400)
[2018-01-02] MEDS: VANCOMYCIN 125 MG/2.5 ML UDL PO SCH ×4 (06:21→21:37)
--- NOTE | 2018-01-02 08:03 | SOAPPROG ---
SOAP Progress Note Assessment/Plan: Assessment/Plan: 72yo gentleman w hx of metastatic NSCLC admitted for hematuria 1. Hematuria - previous urothelial cancer 2017; concern is that may have a recurrence in right renal pelvis causing hematuria vs clot vs other does have ongoing thrombocytopenia which is multifactorial agree w urology holding off on invasive bx given underlying metastatic NSCLC trying to keep platelets closer to 50k to improve hematuria 2. Thrombocytopenia and leukopenia - carbo and pemetrexed last in 10/2017 platelets better after transfusion current infections seem to be under control Bld Cx NGTD from 12/27 lower platelets from chronic DIC vs medication vs chemo induced myelosuppression 3. Anemia - transfused yesterday 4. stage IV NSCLC - initial chemoXRT follwed by durvalumab and on recurrence received carbo/pem 10/2017 Brain mets as well poor prognosis Hospice vs SNF 5. C Diff colitis - oral vanc diarrhea improved 01/02/18 08:02 Subjective: No acute events denies new issues Objective: Vital Signs Temp Pulse Resp BP Pulse Ox 36.7 C 113 H 18 108/61 97 01/02/18 07:46 01/02/18 07:46 01/02/18 07:46 01/02/18 07:46 01/02/18 07:46 Microbiology 12/27/17 11:25 Blood Culture - Final Blood 12/27/17 11:05 Blood Culture - Final Blood 12/23/17 16:30 Blood Panel (PCR) - Final Blood No Organism Detected Laboratory Results 01/02/18 04:30 01/02/18 04:30 01/01/18 01/02/18 01/03/18 05:59 05:59 05:59 Intake Total 1107 Output Total 1251 900 Balance -144 -900 PT 15.2 SEC (12.0-15.0) H 01/01/18 09:50 INR 1.18 (0.83-1.16) H 01/01/18 09:50 Gen - NAD HEENT - anicteric CV - RRR Chest - minimal crackles at bases Abd - soft, less hematuria noted in ileostomy Ext - minimal edema ICD10 Worksheet Patient Problems: Problems Problem Status Onset Bladder cancer Acute Dehydration Acute Hematuria Acute Metastatic lung cancer (metastasis from lung to other site) Acute Renal failure Acute Colon cancer Acute
--- NOTE | 2018-01-02 09:13 | HOSPPROG ---
Hospitalist Progress Note Assessment/Plan: #Metastatic NSCLC: poor prognosis. Initial XRT/chemo followed by Durvalumab. Received carbo/pem. Now with brain mets. -Palliative Care evaluate tomorrow #Hematuria: resolved #ARELI: Cr stable 1.1 #Leukopenia/thrombocytopenia: transfused platelets/RBCs 01/01 #C diff: PO vanc through 96 (1 week after stopping abx) #Gram positive bacteremia: Dapto through 01/10 #Buttock skin breakdown: Zinc cream #Mild rectal bleeding: straining with stools. Not on blood thinners. H/h stable. Monitor #Diet: regular #DVT: SCDs Inpatient admission for IV abx Subjective: many loose stools this morning, small amount blood Objective: Vital Signs Temp Pulse Resp BP Pulse Ox 36.7 C 113 H 18 108/61 97 01/02/18 07:46 01/02/18 07:46 01/02/18 07:46 01/02/18 07:46 01/02/18 07:46 Microbiology 12/27/17 11:25 Blood Culture - Final Blood 12/27/17 11:05 Blood Culture - Final Blood 12/23/17 16:30 Blood Panel (PCR) - Final Blood No Organism Detected Laboratory Results 01/02/18 04:30 01/02/18 04:30 01/01/18 01/02/18 01/03/18 05:59 05:59 05:59 Intake Total 1107 Output Total 1251 900 Balance -144 -900 PT 15.2 SEC (12.0-15.0) H 01/01/18 09:50 INR 1.18 (0.83-1.16) H 01/01/18 09:50 - Time Spent With Patient Time Spent with Patient: greater than 35 minutes Time Spent with Patient: Greater than 35 minutes spent on this patients care, greater than 50% of time spent counseling, educating, and coordinating care regarding the above mentioned plan. - Physical Exam Constitutional: other (NAD) Eyes: PERRL Ears, Nose, Mouth, Throat: moist mucous membranes Cardiovascular: regular rate and rhythym Gastrointestinal: normoactive bowel sounds Genitourinary: peter in urethra (no hematuria) Skin: warm, other (skin breakdown over buttock) Musculoskeletal: full muscle strength Neurologic: AAOx3 Psychiatric: interacting appropriately ICD10 Worksheet Patient Problems: Problems Problem Status Onset Bladder cancer Acute Dehydration Acute Hematuria Acute Metastatic lung cancer (metastasis from lung to other site) Acute Renal failure Acute Colon cancer Acute
[2018-01-02] MEDS: levETIRAcetam 250 MG TAB PO SCH ×2 (09:40→21:37)
[2018-01-02] MEDS: DEXAMETHASONE 4 MG TAB PO SCH (09:43)
[2018-01-02] MEDS: FOLIC ACID 1 MG TAB PO SCH (09:43)
[2018-01-02] MEDS: DAPTOMYCIN IV SCH (09:44)
[2018-01-02] MEDS: NS IV SCH (09:44)
[2018-01-02] MEDS: LIDO/ZINC OX/CLOTRIMAZOLE (MAD) 116 GM CREAM TP SCH ×2 (09:50→21:40)
[2018-01-02] MEDS: LIDOCAINE 4%/MENTHOL 1% PATCH TD SCH (09:50)
--- NOTE | 2018-01-02 10:32 | SOAPPROG ---
SOAP Progress Note Assessment/Plan: Assessment: Bladder cancer Acute SP cystoprostatectomy Hematuria Acute CAT urogram suggests upper tract path, agree with team of physicians care plan Plan: recommended hospice with team of physicians 01/02/18 10:31 Objective: Vital Signs Temp Pulse Resp BP Pulse Ox 36.7 C 113 H 18 108/61 97 01/02/18 07:46 01/02/18 07:46 01/02/18 07:46 01/02/18 07:46 01/02/18 07:46 Microbiology 12/27/17 11:25 Blood Culture - Final Blood 12/27/17 11:05 Blood Culture - Final Blood 12/23/17 16:30 Blood Panel (PCR) - Final Blood No Organism Detected Laboratory Results 01/02/18 04:30 01/02/18 04:30 01/01/18 01/02/18 01/03/18 05:59 05:59 05:59 Intake Total 1107 Output Total 1251 900 Balance -144 -900 PT 15.2 SEC (12.0-15.0) H 01/01/18 09:50 INR 1.18 (0.83-1.16) H 01/01/18 09:50 Physical Exam - Physical Exam General Appearance: other (review and no pt visit) ICD10 Worksheet Patient Problems: Problems Problem Status Onset Bladder cancer Acute Dehydration Acute Hematuria Acute Metastatic lung cancer (metastasis from lung to other site) Acute Renal failure Acute Colon cancer Acute - ICD10 Problem Qualifiers (1) Hematuria (2) Bladder cancer
--- NOTE | 2018-01-02 11:30 | PCMIDPN ---
Assessment/Plan: 72 year old male with metastatic non small cell lung cancer and h/o bladder CA s /p Radical cystectomy with ileal conduit and L nephrectomy : # Anaerobic GPC chains bacteremia, unclear source as UCx from 12/22 does not correspond to blood cx. Unable to ID GPC in our lab. Patient remains stable --awaiting results of ID of anaerobic GPC in chains --continue daptomycin (avoiding vancomycin due to renal toxicity: single kidney , underlying renal insufficiency) --continue to hold statin until daptomycin completed --stop date of antibiotics is 01/10/2018. Reviewed with patient and family that antibiotics can be continued while at SNF or at home depending on discharge timing. # Cdiff, stable to gradually improving --continue on PO vancomycin, continue till January 18 2018, 1 week after stopping antibiotics # ARF: resolved, no hematuria today # H/o ESBL E coli: contact precautions # thrombocytopenia: continues to be a bit better Microbiology 12/27/17 blood cx (2) NGTD 12/23/17 16:30 Blood Cx 2/2 GPC chains (prelim viridans group) 12/22/17 11:00 Urine Cx: Corynebacterium Urealyticum; Staphylococcus Sp Coag Neg; Three [place] Types meds Abx #9 Daptomycin 525 mg IV daily, #5 Subjective: still w loose stool that is more frequent than he would like wants to walk Objective: Vital Signs Temp Pulse Resp BP Pulse Ox 36.7 C 113 H 18 108/61 97 01/02/18 07:46 01/02/18 07:46 01/02/18 07:46 01/02/18 07:46 01/02/18 07:46 Microbiology 12/27/17 11:25 Blood Culture - Final Blood 12/27/17 11:05 Blood Culture - Final Blood 12/23/17 16:30 Blood Panel (PCR) - Final Blood No Organism Detected Laboratory Results 01/02/18 04:30 01/02/18 04:30 01/01/18 01/02/18 01/03/18 05:59 05:59 05:59 Intake Total 1107 Output Total 1251 900 Balance -144 -900 - Physical Exam General Appearance: alert, no apparent distress EENT: pale conjunctiva, No thrush Respiratory: No accessory muscle use, No crackles, No coarse breath sounds Cardiac/Chest: regular rate, rhythm Abdomen: non-tender, soft, other (Ileal conduit bag full of clear urine, no hematuria) Neuro/Psych: alert, normal mood/affect, oriented x 3 - Time Spent With Patient Time Spent with Patient: greater than 35 minutes Time Spent with Patient: Greater than 35 minutes spent on this patients care, greater than 50% of time spent counseling, educating, and coordinating care regarding the above mentioned plan. ICD10 Worksheet Patient Problems: Problems Problem Status Onset Bladder cancer Acute Dehydration Acute Hematuria Acute Metastatic lung cancer (metastasis from lung to other site) Acute Renal failure Acute Colon cancer Acute
[2018-01-02] MEDS: TROLAMINE SALICYLATE 85 GM CRTUBE TP SCH ×2 (13:12→21:38)
[2018-01-02] MEDS: PATCH REMOVAL 1 EA PATCH TD SCH (22:17)
[2018-01-03] MEDS: VANCOMYCIN 125 MG/2.5 ML UDL PO SCH ×4 (05:47→21:55)
[2018-01-03] MEDS: oxyCODONE IR 5 MG TAB PO PRN ×4 (05:47→22:44)
[2018-01-03] MEDS: TROLAMINE SALICYLATE 85 GM CRTUBE TP SCH ×4 (05:49→21:57)
[2018-01-03 06:14] LABS: PLATELET COUNT 47 10^3/uL (150-400)
--- NOTE | 2018-01-03 10:05 | SOAPPROG ---
SOAP Progress Note Assessment/Plan: Assessment: 1. Metastatic nonsmall cell lung cancer 2. Brain mets from NSCLC s/p RT 3. Thrombocytopenia, likely due to chemo (carbo/alimta) 4. H/o multiple superficial bladder cancers s/p cystoureteronephrectomy 5. New lesion R renal pelvis, suspicious for tumor 6. GPCs in chains in blood (anaerobic) 7. C dif Discussed overall situation with patient. May be difficult to resume chemo if his platelets do not recover. Discussed the option of hospice / palliative care. He would like to get back to active treatment if possible. Plan: - continue abx - transfuse for plt>30 or >50 if bleeding resumes - continue to hold chemo 35 min spent w/ pt and in coordination of care. 01/03/18 10:03 Subjective: feeling better today. Hematuria has mostly resolved. Objective: exam: chronically ill, NAD lungs CTAB CV RRR no mGR Abd: +BS NT ND Ext: 2+ edema Neuro: a+ox3. Vital Signs Temp Pulse Resp BP Pulse Ox 36.6 C 94 16 110/68 98 01/03/18 08:43 01/03/18 08:43 01/03/18 08:43 01/03/18 08:43 01/03/18 08:43 Microbiology 12/23/17 16:30 Blood Panel (PCR) - Final Blood No Organism Detected 12/23/17 16:30 Blood Culture - Final Blood Anaerobic Gram Positive Cocci 12/27/17 11:25 Blood Culture - Final Blood 12/27/17 11:05 Blood Culture - Final Blood Laboratory Results 01/03/18 05:55 01/03/18 05:55 01/02/18 01/03/18 01/04/18 05:59 05:59 05:59 Intake Total 500 Output Total 900 1030 Balance -900 -530 PT 15.2 SEC (12.0-15.0) H 01/01/18 09:50 INR 1.18 (0.83-1.16) H 01/01/18 09:50 ICD10 Worksheet Patient Problems: Problems Problem Status Onset Bladder cancer Acute Dehydration Acute Hematuria Acute Metastatic lung cancer (metastasis from lung to other site) Acute Renal failure Acute Colon cancer Acute
[2018-01-03] MEDS: DAPTOMYCIN IV SCH (10:10)
[2018-01-03] MEDS: NS IV SCH (10:10)
[2018-01-03] MEDS: LIDOCAINE 4%/MENTHOL 1% PATCH TD SCH (10:11)
[2018-01-03] MEDS: levETIRAcetam 250 MG TAB PO SCH ×2 (10:11→21:55)
[2018-01-03] MEDS: FOLIC ACID 1 MG TAB PO SCH (10:11)
[2018-01-03] MEDS: DEXAMETHASONE 4 MG TAB PO SCH (10:11)
[2018-01-03] MEDS: LIDO/ZINC OX/CLOTRIMAZOLE (MAD) 116 GM CREAM TP SCH ×2 (10:12→21:57)
--- NOTE | 2018-01-03 13:04 | HOSPPROG ---
Hospitalist Progress Note Assessment/Plan: #Metastatic NSCLC: poor prognosis. Initial XRT/chemo followed by Durvalumab. Received carbo/pem. Now with brain mets. -discussed with onc, pt wishes to continue with tx though palliative consult requested due to poor -chemo on hold with low plts #Hematuria: resolved #ARELI: Cr stable 1.1 #LUE swelling: not on dvt pplx with low plts -check LUE u/s #Leukopenia/thrombocytopenia: transfused platelets/RBCs 01/01 -no transfusion needs today, follow daily #C diff: PO vanc through 01/17 (1 week after stopping abx) #Gram positive bacteremia: Rpt BCx's neg. Discussed with ID. Plan is for Dapto through 01/10 #Buttock skin breakdown: Zinc cream #Mild rectal bleeding: resolved #Diet: regular #DVT: SCDs, pharm c/i with low plts #Dispo: cont inpt, planning for SNF at d/c, possibly 1-2 days Subjective: Pt feels ok, still has frequent urges to have BM, but not much diarrhea output. Denies fevers/chills. Abdominal pain is 4/10. No bleeding. Objective: Vital Signs Temp Pulse Resp BP Pulse Ox 36.6 C 94 16 110/68 98 01/03/18 08:43 01/03/18 08:43 01/03/18 08:43 01/03/18 08:43 01/03/18 08:43 Microbiology 12/23/17 16:30 Blood Panel (PCR) - Final Blood No Organism Detected 12/23/17 16:30 Blood Culture - Final Blood Anaerobic Gram Positive Cocci 12/27/17 11:25 Blood Culture - Final Blood 12/27/17 11:05 Blood Culture - Final Blood Laboratory Results 01/03/18 05:55 01/03/18 05:55 01/02/18 01/03/18 01/04/18 05:59 05:59 05:59 Intake Total 500 100 Output Total 900 1030 250 Balance -900 -530 -150 PT 15.2 SEC (12.0-15.0) H 01/01/18 09:50 INR 1.18 (0.83-1.16) H 01/01/18 09:50 - Physical Exam Constitutional: no apparent distress Eyes: PERRL Ears, Nose, Mouth, Throat: moist mucous membranes Cardiovascular: regular rate and rhythym Respiratory: no respiratory distress Gastrointestinal: other (soft, nd, mild TTP, no r/r/g or peritoneal signs) Skin: warm Musculoskeletal: other (LUE swelling) Neurologic: AAOx3 Psychiatric: interacting appropriately ICD10 Worksheet Patient Problems: Problems Problem Status Onset Bladder cancer Acute Dehydration Acute Hematuria Acute Metastatic lung cancer (metastasis from lung to other site) Acute Renal failure Acute Colon cancer Acute
--- NOTE | 2018-01-03 14:27 | ASMTCMCOM ---
CM Note CM Note Notes: Patient plan of care reviewed in rounds. Despite poor prognosis, family wishes to pursue treatment options. Ion Serena met with patient and his to revisit options for palliative care support while they continue treatment, They are agreeable. I met with the patient and his to any questions and concerns regarding transfer to [facility]. I assured them this would be arranged via CM when the patient is medically ready for discharge. CM to follow. Plan: DC to [facility] when medically cleared for discharge. Date Signed: 01/03/2018 02:26 PM Electronically Signed By:Charlee Li RN
[2018-01-03] MEDS: PATCH REMOVAL 1 EA PATCH TD SCH (22:00)
[2018-01-04] MEDS: VANCOMYCIN 125 MG/2.5 ML UDL PO SCH ×3 (05:34→16:44)
[2018-01-04] MEDS: oxyCODONE IR 5 MG TAB PO PRN (05:34)
[2018-01-04 06:05] LABS: PLATELET COUNT 38 10^3/uL (150-400)
[2018-01-04] MEDS: FOLIC ACID 1 MG TAB PO SCH (09:15)
[2018-01-04] MEDS: DEXAMETHASONE 4 MG TAB PO SCH (09:15)
[2018-01-04] MEDS: levETIRAcetam 250 MG TAB PO SCH (09:15)
[2018-01-04] MEDS: LIDOCAINE 4%/MENTHOL 1% PATCH TD SCH (09:16)
[2018-01-04] MEDS: NS IV SCH (09:55)
[2018-01-04] MEDS: DAPTOMYCIN IV SCH (09:55)
--- NOTE | 2018-01-04 10:23 | SOAPPROG ---
SOAP Progress Note Assessment/Plan: Assessment: 1. Metastatic nonsmall cell lung cancer 2. Brain mets from NSCLC s/p RT 3. Thrombocytopenia, likely due to chemo (carbo/alimta) 4. H/o multiple superficial bladder cancers s/p cystoureteronephrectomy 5. New lesion R renal pelvis, suspicious for tumor 6. GPCs in chains in blood (anaerobic) 7. C dif overall improving clinically, though plts remain low. Plan: - d/c to rehab today - will check B12 and methylmalonic acid to see if that might be contributing to poor platelet recovery. (more likely just chemo effect) - continue abx (dapto through 01/10; vanco 1 week past that) - continue dex 4 mg daily; will plan to d/c in 1-2 weeks - f/u with me in clinic in 1-2 weeks for consideration of resuming chemotherapy. Subjective: feeling better. bleeding has subsided. Objective: exam: NAD Lungs CTAB CV RRR no MGr Abd: +Bs NT ND Ext: no edema. Skin: no petechie, purpura, rashes Vital Signs Temp Pulse Resp BP Pulse Ox 37.0 C 94 16 110/62 97 01/04/18 08:58 01/04/18 08:58 01/04/18 08:58 01/04/18 08:58 01/04/18 08:58 Microbiology 12/23/17 16:30 Blood Panel (PCR) - Final Blood No Organism Detected 12/23/17 16:30 Blood Culture - Final Blood Anaerobic Gram Positive Cocci Laboratory Results 01/04/18 05:40 01/03/18 05:55 01/03/18 01/04/18 01/05/18 05:59 05:59 05:59 Intake Total 500 400 Output Total 1030 925 Balance -530 -525 PT 15.2 SEC (12.0-15.0) H 01/01/18 09:50 INR 1.18 (0.83-1.16) H 01/01/18 09:50 ICD10 Worksheet Patient Problems: Problems Problem Status Onset Bladder cancer Acute Dehydration Acute Hematuria Acute Metastatic lung cancer (metastasis from lung to other site) Acute Renal failure Acute Colon cancer Acute
[2018-01-04 10:27] LABS: CREATINE KINASE 93 IU/L (0-224)
--- NOTE | 2018-01-04 10:36 | PCMIDPN ---
Assessment/Plan: 72 year old male with metastatic non small cell lung cancer and h/o bladder CA s /p Radical cystectomy with ileal conduit and L nephrectomy : # Anaerobic GPC chains bacteremia, unclear source as UCx from 12/22 does not correspond to blood cx. Unable to ID GPC in our lab. Patient remains stable --awaiting results of ID of anaerobic GPC in chains --continue to hold statin until daptomycin completed. CK and LFTs were okay today. --stop date of antibiotics is 01/10/2018. # Cdiff, stable to gradually improving --continue on PO vancomycin, continue till 01/18/18, 1 week after stopping antibiotics # ARF: resolved, no hematuria today # H/o ESBL E coli: contact precautions # thrombocytopenia: continues to be a bit better Microbiology 12/27/17 blood cx (2) NGTD 12/23/17 16:30 Blood Cx 2/2 GPC chains (prelim viridans group) 12/22/17 11:00 Urine Cx: Corynebacterium Urealyticum; Staphylococcus Sp Coag Neg; Three [place] Types meds Abx #11 Daptomycin 525 mg IV daily, #7 Subjective: Patient is feeling about the same. Little change in frequency of diarrhea. Objective: Vital Signs Temp Pulse Resp BP Pulse Ox 37.0 C 94 16 110/62 97 01/04/18 08:58 01/04/18 08:58 01/04/18 08:58 01/04/18 08:58 01/04/18 08:58 Microbiology 12/23/17 16:30 Blood Panel (PCR) - Final Blood No Organism Detected 12/23/17 16:30 Blood Culture - Final Blood Anaerobic Gram Positive Cocci Laboratory Results 01/04/18 05:40 01/03/18 05:55 01/03/18 01/04/18 01/05/18 05:59 05:59 05:59 Intake Total 500 400 Output Total 1030 925 Balance -530 -525 Laboratory Tests 01/04/18 09:55 Total Bilirubin 1.3 Conjugated Bilirubin 0.2 Unconjugated Bilirubin 1.1 AST 27 ALT 53 Alkaline Phosphatase 102 Creatine Kinase 93 - Physical Exam General Appearance: alert, no apparent distress EENT: pale conjunctiva Respiratory: No respiratory distress, No accessory muscle use Neck: supple Cardiac/Chest: regular rate, rhythm, systolic murmur Abdomen: non-tender, soft Skin: pallor Neuro/Psych: alert, normal mood/affect, oriented x 3 - Line/s Mediport Lines: No drainage, No erythema - Time Spent With Patient Time Spent with Patient: greater than 35 minutes (Care coordinated with nursing and Case Management) Time Spent with Patient: Greater than 35 minutes spent on this patients care, greater than 50% of time spent counseling, educating, and coordinating care regarding the above mentioned plan. ICD10 Worksheet Patient Problems: Problems Problem Status Onset Bladder cancer Acute Dehydration Acute Hematuria Acute Metastatic lung cancer (metastasis from lung to other site) Acute Renal failure Acute Colon cancer Acute
--- NOTE | 2018-01-04 10:40 | PDIAF ---
- Diagnosis Diagnosis: bacteremia with GPC; cdiff Code Status: Full Code - Medication Management Discharge Medications: Medications to Continue on Transfer Allopurinol [Allopurinol 300 MG (RX)] 300 mg PO DAILY #0 12/30/16 [Last Taken ] Atorvastatin Calcium [Lipitor 40 mg (*)] 40 mg PO DAILY #0 12/30/16 [Last Taken 12/22/17] Metoprolol Succinate Xr [Toprol Xl 100 mg (*)] 100 mg PO DAILY 05/28/17 [Last Taken 12/22/17] Dexamethasone [Decadron 4 MG (*)] 4 mg PO DAILY 12/23/17 [Last Taken 12/22/17] Folic Acid [Folic Acid 1 MG (*)] 1 mg PO DAILY 12/23/17 [Last Taken 12/22/17] Lidocaine [Lidoderm] 1 each TP DAILY 12/23/17 [Last Taken 12/23/17 0900] levETIRAcetam [Keppra 500 mg (*)] 750 mg PO BID 12/23/17 [Last Taken 12/23/17 AM DOSE] oxyCODONE IR [Oxycodone Ir (*)] 5 mg PO Q4H PRN 12/23/17 [Last Taken 12/22/17] Acetaminophen [Tylenol 325mg (*)] 650 mg PO Q4HRS PRN tab 01/04/18 [Last Taken Unknown] DAPTOmycin [Cubicin] 525 mg IV DAILY ml 01/04/18 [Last Taken Unknown] Lido/Zinc Ox/Clotrimazole Crm [Moisture Associated Dermatitis Cream] 1 baltazar TP BID cream 01/04/18 [Last Taken Unknown] Vancomycin [Vancocin Oral Liquid] 250 mg PO QID #280 ml 01/04/18 [Last Taken Unknown] Residential Antibiotics: daptomycin 525mg IV daily [employer] Antibiotic Stop Date: 01/10/18 Additional Medication Instructions: Vancomycin 250mg PO QID through 01/18/18 Discharge Medications: Refer to the Discharge Home Medication list for PRN reason. PICC Care - Routine: Yes - Orders Isolation Type: CDIFF Isolation, Contact Isolation Diet Recommendation: no restrictions on diet Additional Instructions: Follow up with Dr. Asencio in 1-2 weeks. Please follow up within 3- 4 weeks of discharge with outpatient [facility] if you continue to have issues with your wounds: You may reach them at [phone] for an appointment and continued management of your wounds. Please call them [facility] to schedule your appointment as they fill up quickly. If before that time you have any issues, please follow up with your PCP. Wound care: Bedsore (Pressure injury) care: You have an unstageable pressure injury (also known as a bedsore) on the very lowest part of your back (the coccyx/sacrum) and right ischium (sit bone). To help heal these wounds and avoid further injury please do the followin. Reposition yourself frequently, at least every 15 minutes when sitting. Try to stand for at least 3 min every hour so that the tissues fully reperfuse with blood. We recommend sitting on an air cushion. Please never use a doughnut. 2. When youre in bed, try to rest on your side as much as possible, and change position every two hours (for example, turn or tilt from your right side toward your left).~ If you sleep on a sleep number or medical bed, keep the head of the bed below 30 degrees and keep all pressure off your low back for at least 5 minutes at least every two hours.~ 3. As needed, you may use Calazime, dimethicone moisture barrier cream, or any bhfi-sct-gohljtz diaper rash cream to help prevent or treat a moisture-related rash to your bottom area and buttocks. 4. Please contact [facility] outpatient [facility] for an appointment, at , If your wounds re/open or dont improve, or if you have any further questions or concerns. Linda Dumont RN Wound Care Team - Labs/Radiology CBC w/diff Date: 01/10/18 (weekly wednesday) CMP Date: 01/10/18 (weekly wednesday) CPK Date: 01/10/18 (weekly wednesday) Call or Fax Lab and Imaging Results to: Klaudia Julian MD [facility] for Infectious Diseases at fax [phone] - Follow Up Care Current Providers and Referrals: Ilia Asencio MD [Medical Doctor] - Dennys Velez MD [Primary Care Provider] - As per Instructions
--- NOTE | 2018-01-04 11:00 | PDIAF ---
- Diagnosis Diagnosis: bacteremia with GPC; cdiff Code Status: Full Code - Medication Management Discharge Medications: Medications to Continue on Transfer Allopurinol [Allopurinol 300 MG (RX)] 300 mg PO DAILY #0 12/30/16 [Last Taken ] Atorvastatin Calcium [Lipitor 40 mg (*)] 40 mg PO DAILY #0 12/30/16 [Last Taken 12/22/17] Metoprolol Succinate Xr [Toprol Xl 100 mg (*)] 100 mg PO DAILY 05/28/17 [Last Taken 12/22/17] Dexamethasone [Decadron 4 MG (*)] 4 mg PO DAILY 12/23/17 [Last Taken 12/22/17] Folic Acid [Folic Acid 1 MG (*)] 1 mg PO DAILY 12/23/17 [Last Taken 12/22/17] Lidocaine [Lidoderm] 1 each TP DAILY 12/23/17 [Last Taken 12/23/17 0900] levETIRAcetam [Keppra 500 mg (*)] 750 mg PO BID 12/23/17 [Last Taken 12/23/17 AM DOSE] oxyCODONE IR [Oxycodone Ir (*)] 5 mg PO Q4H PRN 12/23/17 [Last Taken 12/22/17] Acetaminophen [Tylenol 325mg (*)] 650 mg PO Q4HRS PRN tab 01/04/18 [Last Taken Unknown] DAPTOmycin [Cubicin] 525 mg IV DAILY ml 01/04/18 [Last Taken Unknown] Lido/Zinc Ox/Clotrimazole Crm [Moisture Associated Dermatitis Cream] 1 baltazar TP BID cream 01/04/18 [Last Taken Unknown] Vancomycin [Vancocin Oral Liquid] 250 mg PO QID #280 ml 01/04/18 [Last Taken Unknown] Nursing Home Antibiotics: daptomycin 525mg IV daily [employer] Antibiotic Stop Date: 01/10/18 Additional Medication Instructions: Vancomycin 250mg PO QID through 01/18/18 Discharge Medications: Refer to the Discharge Home Medication list for PRN reason. PICC Care - Routine: Yes (port care, not PICC line care.) - Orders Isolation Type: CDIFF Isolation, Contact Isolation Diet Recommendation: no restrictions on diet Additional Instructions: Follow up with Dr. Asencio in 1-2 weeks. Please follow up within 3- 4 weeks of discharge with outpatient [facility]aling Center if you continue to have issues with your wounds: You may reach them at [phone] for an appointment and continued management of your wounds. Please call them [facility] to schedule your appointment as they fill up quickly. If before that time you have any issues, please follow up with your PCP. Wound care: Bedsore (Pressure injury) care: You have an unstageable pressure injury (also known as a bedsore) on the very lowest part of your back (the coccyx/sacrum) and right ischium (sit bone). To help heal these wounds and avoid further injury please do the followin. Reposition yourself frequently, at least every 15 minutes when sitting. Try to stand for at least 3 min every hour so that the tissues fully reperfuse with blood. We recommend sitting on an air cushion. Please never use a doughnut. 2. When youre in bed, try to rest on your side as much as possible, and change position every two hours (for example, turn or tilt from your right side toward your left).~ If you sleep on a sleep number or medical bed, keep the head of the bed below 30 degrees and keep all pressure off your low back for at least 5 minutes at least every two hours.~ 3. As needed, you may use Calazime, dimethicone moisture barrier cream, or any mbti-bgh-bjphahv diaper rash cream to help prevent or treat a moisture-related rash to your bottom area and buttocks. 4. Please contact [facility] outpatient [facility] for an appointment, at , If your wounds re/open or dont improve, or if you have any further questions or concerns. Linda Dumont RN Wound Care Team - Labs/Radiology CBC w/diff Date: 01/10/18 (weekly wednesday) CMP Date: 01/10/18 (weekly wednesday) CPK Date: 01/10/18 (weekly wednesday) Call or Fax Lab and Imaging Results to: Klaudia Julian MD [facility] Infect[facility] at fax [phone] - Follow Up Care Current Providers and Referrals: Ilia Asencio MD [Medical Doctor] - Dennys Velez MD [Primary Care Provider] - As per Instructions Klaudia Julian MD [Medical Doctor] - 01/11/18 3:00 pm
[2018-01-04] MEDS: LIDO/ZINC OX/CLOTRIMAZOLE (MAD) 116 GM CREAM TP SCH (11:35)
[2018-01-04] MEDS: TROLAMINE SALICYLATE 85 GM CRTUBE TP SCH ×2 (11:36→16:44)
--- NOTE | 2018-01-04 11:49 | ASMTCMCOM ---
CM Note CM Note Notes: Plan of care reviewed. Medically cleared for dc to SNF. Final orders via allscripts. Spoke with Tra at [facility] to clarify that patient could receive daptomycin. She will clarify and call me back. Patient would benefit from stretcher transport due to his hip and elver pain. CM available should other needs arise. Plan: Dc to [facility] with Palliative Care. Date Signed: 01/04/2018 11:48 AM Electronically Signed By:Charlee Li RN
--- NOTE | 2018-01-04 12:57 | ASMTCMCOM ---
CM Note CM Note Notes: Authorization approved for transfer to [facility] and daptomycin. Final orders sent. PCS form filled out awaiting transport time. CM available should other needs exist. Plan: To [facility] Date Signed: 01/04/2018 12:56 PM Electronically Signed By:Charlee Li RN
--- NOTE | 2018-01-04 14:28 | ASMTLACE ---
LACE Length of stay for Answers: 7-13 days current admission Acuity / Level of Answers: Yes Care: Did the patient have an inpatient admission? Comorbidities - select Answers: Any tumor (including all that apply lymphoma or leukemia) Mild liver or renal disease Previous myocardial infarction # of Emergency department Answers: 1-2 visits in the last 6 months Score: 14 Date Signed: 01/04/2018 02:27 PM Electronically Signed By:Nena Gaines
[2018-01-04 16:07] VITALS: BP 98/58
--- NOTE | 2018-01-05 06:40 | GDS ---
DISCHARGE DIAGNOSES: 1. Gram-positive bacteremia. 2. Metastatic non-small cell lung cancer. 3. Hematuria, resolved. 4. Acute kidney injury, resolved. 5. Buttock skin breakdown, treated with zinc barrier cream. 6. Mild rectal bleeding, resolved. 7. Thrombocytopenia. CONSULTANTS: 1. Dr. Bk Yeager, Oncology. 2. Dr. Damien Ravi, Infectious Disease. HISTORY: For details, please see history and physical dated December 23, 2017. In brief, the patient is a 72-year-old male with a history of metastatic non-small cell lung cancer, [facility]. He was found to have a complicated urinary tract infection w ith an acute kidney injury and was admitted to the hospital for further management. HOSPITAL COURSE: The patient was admitted to the Oncology care unit. He was treated with vancomycin empirically, given his history of ESBL. Infectious Disease consult was obtained for assistance in m anagement of gram-positive cocci bacteremia. He was ultimately changed to daptomycin to ensure cover age of anaerobic gram-positive cocci, acknowledging the risk of renal toxicity with vancomycin. He, unfortunately, developed C diff and was treated with oral vancomycin. The dose was increased to 250 mg q.i.d. based on persistent symptoms while on antibiotics. The plan is to continue the vancomycin for 1 week after completion of his daptomycin, which will be continued through January 10. With re spect to his metastatic non-small cell lung cancer, Oncology consult was obtained. Chemotherapy has been held given his marked thrombocytopenia. It was acknowledged his overall prognosis is poor and jannie neil was offered hospice and palliative care. However, the patient is hopeful to resume active cancer t reatment. It is also noted a new lesion was found in the right renal pelvis, which is suspicious for tumor. He also has had a history of multiple superficial bladder cancers and is status post cystour ethral nephrectomy. He did require blood product transfusions including 3 units of platelets and 3 u nits of packed red blood cells in total. His hemoglobin remained stable and at discharge is 8.3. Robert s platelet count has been persistently under 50,000, and on the day of discharge it is 38,000. His B 12 and methylmalonic acid levels are sent on the day of discharge, to see if that may be contributing to poor platelet recovery, though it is suspected this is more likely a chemotherapy side effect. Jannie neil was noted to have some left upper extremity swelling and an ultrasound was performed which was nega tive for DVT. He will also be discharged to continue on dexamethasone, which may be stopped in 1-2 w eeks pending Oncology followup. Overall, the patient's condition has improved and he is ready [facility] di [facility]. DISPOSITION: Patient is discharged in [facility] condition to a [facility]. FOLLOWUP: 1. Dr. Ilia Asencio, Oncology. 2. Dr. Dennys Velez, primary care. 3. Dr. Klaudia Julian, Infectious Disease, January 11, 2018, at 3 p.m. DISCHARGE MEDICATIONS: Please see [facility] completed outpatient medication list. New medications on discharge include: 1. Daptomycin 525 mg IV daily through January 10. 2. Vancomycin 250 mg p.o. q.i.d. through January 17, one week after completion of daptomycin. 3. Tylenol. 4. Dermatitis screen. He will continue all other outpatient medications as previously prescribed includin. Lidoderm patch. 2. Dexamethasone 4 mg p.o. daily. 3. Folic acid 1 mg p.o. daily. 4. Keppra 750 mg p.o. b.i.d. 5. Oxycodone 5 mg p.o. q.4 hours p.r.n. 6. Toprol-XL 100 mg p.o. daily. 7. Allopurinol 300 mg p.o. daily. 8. Atorvastatin 40 mg p.o. daily. /[id number]/MODL
== END 2018-01-04 17:48 | DRG 690 ==
LOC: F1N 15:28
PROVIDERS: ADMIT Internal Medicine; ATTEND Internal Medicine
DX: N39.0 Urinary tract infection, site not specified (principal); R78.81 Bacteremia; R31.9 Hematuria, unspecified; N17.9 Acute kidney failure, unspecified; K62.5 Hemorrhage of anus and rectum; D64.81 Anemia due to antineoplastic chemotherapy; A04.72 Enterocolitis due to Clostridium difficile, not specified as recurrent; D69.6 Thrombocytopenia, unspecified; I25.10 Atherosclerotic heart disease of native coronary artery without angina pectoris; N18.3 Chronic kidney disease, stage 3 (moderate); C79.31 Secondary malignant neoplasm of brain; C79.51 Secondary malignant neoplasm of bone; C79.70 Secondary malignant neoplasm of unspecified adrenal gland; C79.89 Secondary malignant neoplasm of other specified sites; C78.7 Secondary malignant neoplasm of liver and intrahepatic bile duct; Z85.46 Personal history of malignant neoplasm of prostate; Z85.51 Personal history of malignant neoplasm of bladder; Z85.118 Personal history of other malignant neoplasm of bronchus and lung; Z85.038 Personal history of other malignant neoplasm of large intestine; Z90.5 Acquired absence of kidney; Z90.6 Acquired absence of other parts of urinary tract; Z87.442 Personal history of urinary calculi; Z93.6 Other artificial openings of urinary tract status; Z91.81 History of falling; I25.2 Old myocardial infarction; Z95.5 Presence of coronary angioplasty implant and graft; Z96.89 Presence of other specified functional implants; R56.9 Unspecified convulsions; Z87.891 Personal history of nicotine dependence
CPT/HCPCS: 82607-90; 83921-90; 87186-90; 96365; 97110-GP; 97116-GP; 97162-GP; 97166-GO; 97530-GP; 97535-GO; G8978-GP-CK; G8978-GP-CL; G8979-GP-CJ; G8987-GO-CK; G8988-GO-CI; G8988-GO-CJ; J0696; J0878; J1956; J3370; P9016; P9035; P9040; P9073; P9100; Q9967